=== PATIENT | male | born 1935 | race Two or more races ===

== ENCOUNTER 2018-01-10 14:35 | Outpatient (CLI) | payer MEDICARE | END 2018-01-10 23:59 | disposition home health service (06) | LOC: WOU 14:35 | PROVIDERS: ATTEND Surgery | DX: L89.154 Pressure ulcer of sacral region, stage 4 (principal); M24.50 Contracture, unspecified joint; E44.0 Moderate protein-calorie malnutrition; Z68.23 Body mass index [BMI] 23.0-23.9, adult; Z79.899 Other long term (current) drug therapy; L89.621 Pressure ulcer of left heel, stage 1; L89.611 Pressure ulcer of right heel, stage 1; G30.9 Alzheimer's disease, unspecified; F02.80 Dementia in other diseases classified elsewhere, unspecified severity, without behavioral disturbance, psychotic disturbance, mood disturbance, and anxiety | CPT/HCPCS: 11043; A6402; Z7610 ==

== ENCOUNTER 2018-01-17 14:30 | Outpatient (CLI) | payer MEDICARE | END 2018-01-17 23:59 | disposition home health service (06) | LOC: WOU 14:30 | PROVIDERS: ATTEND Surgery | DX: L89.154 Pressure ulcer of sacral region, stage 4 (principal); G30.9 Alzheimer's disease, unspecified; F02.80 Dementia in other diseases classified elsewhere, unspecified severity, without behavioral disturbance, psychotic disturbance, mood disturbance, and anxiety; E44.0 Moderate protein-calorie malnutrition; Z68.23 Body mass index [BMI] 23.0-23.9, adult; M24.50 Contracture, unspecified joint; R53.1 Weakness; L89.621 Pressure ulcer of left heel, stage 1; L89.611 Pressure ulcer of right heel, stage 1 | CPT/HCPCS: 11043; A6402; Z7610 ==

== ENCOUNTER 2018-01-24 13:19 | Outpatient (CLI) | payer MEDICARE | END 2018-01-24 23:59 | disposition home health service (06) | LOC: WOU 13:19 | PROVIDERS: ATTEND Surgery | DX: L89.154 Pressure ulcer of sacral region, stage 4 (principal); M24.50 Contracture, unspecified joint; E44.0 Moderate protein-calorie malnutrition; Z68.23 Body mass index [BMI] 23.0-23.9, adult; G30.9 Alzheimer's disease, unspecified; F02.80 Dementia in other diseases classified elsewhere, unspecified severity, without behavioral disturbance, psychotic disturbance, mood disturbance, and anxiety; L89.621 Pressure ulcer of left heel, stage 1; L89.611 Pressure ulcer of right heel, stage 1 | CPT/HCPCS: 11042; A6402; Z7610 ==

== ENCOUNTER 2018-01-31 13:09 | Outpatient (CLI) | payer MEDICARE | END 2018-01-31 23:59 | disposition home health service (06) | LOC: WOU 13:09 | PROVIDERS: ATTEND Surgery | DX: L89.154 Pressure ulcer of sacral region, stage 4 (principal); G30.9 Alzheimer's disease, unspecified; F02.80 Dementia in other diseases classified elsewhere, unspecified severity, without behavioral disturbance, psychotic disturbance, mood disturbance, and anxiety; E44.0 Moderate protein-calorie malnutrition; Z68.23 Body mass index [BMI] 23.0-23.9, adult; M24.50 Contracture, unspecified joint; R53.1 Weakness; L89.621 Pressure ulcer of left heel, stage 1; L89.611 Pressure ulcer of right heel, stage 1 | CPT/HCPCS: 11043; A6402; Z7610 ==

== ENCOUNTER 2018-02-07 13:20 | Outpatient (CLI) | payer MEDICARE | END 2018-02-07 23:59 | disposition home health service (06) | LOC: WOU 13:20 | PROVIDERS: ATTEND Surgery | DX: L89.154 Pressure ulcer of sacral region, stage 4 (principal); G30.9 Alzheimer's disease, unspecified; F02.80 Dementia in other diseases classified elsewhere, unspecified severity, without behavioral disturbance, psychotic disturbance, mood disturbance, and anxiety; E44.0 Moderate protein-calorie malnutrition; Z68.23 Body mass index [BMI] 23.0-23.9, adult; M24.50 Contracture, unspecified joint; R35.1 Nocturia; L89.621 Pressure ulcer of left heel, stage 1; L89.611 Pressure ulcer of right heel, stage 1 | CPT/HCPCS: 11042; A6402; Z7610 ==

== ENCOUNTER 2018-04-11 13:00 | Outpatient (CLI) | payer MEDICARE, MEDICAID | END 2018-04-11 23:59 | disposition home health service (06) | LOC: WOU 13:00 | PROVIDERS: ATTEND Surgery | DX: Z09 Encounter for follow-up examination after completed treatment for conditions other than malignant neoplasm (principal); M24.50 Contracture, unspecified joint; R53.1 Weakness; G30.9 Alzheimer's disease, unspecified; F02.80 Dementia in other diseases classified elsewhere, unspecified severity, without behavioral disturbance, psychotic disturbance, mood disturbance, and anxiety; E44.0 Moderate protein-calorie malnutrition; Z68.23 Body mass index [BMI] 23.0-23.9, adult; L89.621 Pressure ulcer of left heel, stage 1; L89.611 Pressure ulcer of right heel, stage 1 | CPT/HCPCS: G0463; Z7610 ==

== ENCOUNTER 2018-05-09 13:15 | Outpatient (CLI) | payer MEDICARE, MEDICAID | END 2018-05-09 23:59 | disposition home or self-care (01) | LOC: WOU 13:15 | PROVIDERS: ATTEND Surgery | DX: L89.621 Pressure ulcer of left heel, stage 1 (principal); L89.611 Pressure ulcer of right heel, stage 1; Z68.23 Body mass index [BMI] 23.0-23.9, adult; G30.9 Alzheimer's disease, unspecified; F02.80 Dementia in other diseases classified elsewhere, unspecified severity, without behavioral disturbance, psychotic disturbance, mood disturbance, and anxiety; N40.0 Benign prostatic hyperplasia without lower urinary tract symptoms; Z79.899 Other long term (current) drug therapy; E44.0 Moderate protein-calorie malnutrition; R53.1 Weakness; M24.50 Contracture, unspecified joint | CPT/HCPCS: G0463; Z7610 ==

== ENCOUNTER 2018-07-25 11:15 | Outpatient (CLI) | payer MEDICARE, MEDICAID | END 2018-07-25 23:59 | disposition home health service (06) | LOC: WOU 11:15 | PROVIDERS: ATTEND Surgery | DX: L89.323 Pressure ulcer of left buttock, stage 3 (principal); G30.9 Alzheimer's disease, unspecified; F02.80 Dementia in other diseases classified elsewhere, unspecified severity, without behavioral disturbance, psychotic disturbance, mood disturbance, and anxiety; M62.50 Muscle wasting and atrophy, not elsewhere classified, unspecified site; M62.40 Contracture of muscle, unspecified site; E46 Unspecified protein-calorie malnutrition; Z68.23 Body mass index [BMI] 23.0-23.9, adult; R47.01 Aphasia; B36.9 Superficial mycosis, unspecified | CPT/HCPCS: A6402; G0463 ==

== ENCOUNTER 2018-08-12 13:30 | Outpatient (CLI) | payer MEDICARE, MEDICAID | END 2018-08-12 23:59 | disposition home health service (06) | LOC: WOU 13:30 | PROVIDERS: ATTEND Podiatrist Foot & Ankle Surgery | DX: S91.311A Laceration without foreign body, right foot, initial encounter (principal); X58.XXXA Exposure to other specified factors, initial encounter; Y92.89 Other specified places as the place of occurrence of the external cause; R60.0 Localized edema; L85.3 Xerosis cutis; L89.323 Pressure ulcer of left buttock, stage 3 | CPT/HCPCS: A6402; G0463 ==

== ENCOUNTER 2019-01-16 11:30 | Outpatient (CLI) | payer MEDICARE, MEDICAID | END 2019-01-16 23:59 | disposition home health service (06) | LOC: WOU 11:30 | PROVIDERS: ATTEND Podiatrist Foot & Ankle Surgery | DX: L89.613 Pressure ulcer of right heel, stage 3 (principal); L03.115 Cellulitis of right lower limb; G30.9 Alzheimer's disease, unspecified; F02.80 Dementia in other diseases classified elsewhere, unspecified severity, without behavioral disturbance, psychotic disturbance, mood disturbance, and anxiety; M62.50 Muscle wasting and atrophy, not elsewhere classified, unspecified site | CPT/HCPCS: 11042; 11045 ==

== ENCOUNTER 2019-01-23 11:34 | Outpatient (CLI) | payer MEDICARE, MEDICAID ==
[2019-03-12] MEDS ORDERED: TAMS-12 PO (11:30)
[2019-03-12] MEDS ORDERED: BISA10SU11 RC (11:30)
== END 2019-01-23 23:59 | disposition home health service (06) ==
LOC: WOU 11:34
PROVIDERS: ATTEND Podiatrist Foot & Ankle Surgery
DX: L89.613 Pressure ulcer of right heel, stage 3 (principal); S81.811A Laceration without foreign body, right lower leg, initial encounter; W45.8XXA Other foreign body or object entering through skin, initial encounter; Y92.89 Other specified places as the place of occurrence of the external cause; G30.9 Alzheimer's disease, unspecified; F02.80 Dementia in other diseases classified elsewhere, unspecified severity, without behavioral disturbance, psychotic disturbance, mood disturbance, and anxiety
CPT/HCPCS: G0463

== ENCOUNTER 2019-02-03 11:30 | Outpatient (CLI) | payer MEDICARE, MEDICAID | END 2019-02-03 23:59 | disposition home or self-care (01) | LOC: WOU 11:30 | PROVIDERS: ATTEND Podiatrist Foot & Ankle Surgery | DX: S81.811D Laceration without foreign body, right lower leg, subsequent encounter (principal); X58.XXXD Exposure to other specified factors, subsequent encounter; Z74.09 Other reduced mobility; G30.8 Other Alzheimer's disease | CPT/HCPCS: G0463 ==

== ENCOUNTER 2019-02-20 11:10 | Outpatient (CLI) | payer MEDICARE, MEDICAID ==
[2019-03-12] MEDS ORDERED: TAMS-12 PO (11:30)
[2019-03-12] MEDS ORDERED: BISA10SU11 RC (11:30)
== END 2019-02-20 23:59 | disposition home health service (06) ==
LOC: WOU 11:10
PROVIDERS: ATTEND Surgery
DX: S40.212A Abrasion of left shoulder, initial encounter (principal); X58.XXXA Exposure to other specified factors, initial encounter; Y92.013 Bedroom of single-family (private) house as the place of occurrence of the external cause; L89.210 Pressure ulcer of right hip, unstageable; G30.9 Alzheimer's disease, unspecified; F02.80 Dementia in other diseases classified elsewhere, unspecified severity, without behavioral disturbance, psychotic disturbance, mood disturbance, and anxiety; Z74.09 Other reduced mobility
CPT/HCPCS: G0463

== ENCOUNTER 2019-03-05 10:48 | Inpatient (IN) | payer MEDICARE, MEDICAID ==
[~2019-03-05] VITALS: Ht 182.9 cm; Wt 71.7 kg
[2019-03-05] MEDS ORDERED: IV NS 0.9% 1,000 ML BAG IV ONE (11:00)
--- NOTE | 2019-03-05 11:00 | NUR ---
PT BIBRA FROM HOME C/O FEVER/ GEN WEAKNESS FOR 2 DAYS. FINISHED ANTIBIOTIC TREATMENT FOR UTI YESTERDAY. PT IS ALERT YET NON VERBAL, VSS, BREATHING EVEN AND UNLABORED IN ROOM AIR. IV LINE ESTABLISHED 20G. R HEEL PRESSURE SORE NOTED.
[2019-03-05 11:20] LABS: BASOPHILS % (AUTO) 0.3 % (0.0-2.0); EOSINOPHILS % (AUTO) 0.6 % (0.0-6.0); HEMATOCRIT 49 % (39-51); HEMOGLOBIN 15.4 g/dL (13.5-17.5); LYMPHOCYTES # (AUTO) 1.4 /CMM (0.8-4.8); LYMPHOCYTES % (AUTO) 16.9 % (20.0-44.0); MEAN CORPUSCULAR HGB CONC 32 g/dl (31.0-36.0); MEAN CORPUSCULAR VOLUME 91 fL (80-96); MONOCYTES # (AUTO) 0.5 /CMM (0.1-1.30); MONOCYTES % (AUTO) 6.5 % (2.0-12.0); NEUTROPHILS # (AUTO) 6.3 /CMM (1.8-8.9); NEUTROPHILS % (AUTO) 75.7 % (43.0-81.0); PLATELET COUNT (AUTO) 89 /CMM (150-450); RED BLOOD CELL COUNT(AUTO) 5.41 MIL/uL (4.5-6.0); WHITE BLOOD COUNT (AUTO) 8.3 K/uL (4.3-11.0)
[2019-03-05] MEDS ORDERED: ACETAMINOPHEN 650 MG/SUPP.RECT RC ONE (11:30)
[2019-03-05] MEDS ORDERED: ACETAMINOPHEN ES 500 MG TABLET PO ONE (11:30)
[2019-03-05 11:36] LABS: APPEARANCE,URINE Cloudy (CLEAR); BILIRUBIN,URINE Negative (NEGATIVE); BLOOD, URINE Large Ery/uL (NEGATIVE); KETONES,URINE Negative (NEGATIVE); LEUKOCYTE ESTERASE ,URINE Moderate (NEGATIVE); NITRITE, URINE Negative (NEGATIVE); PH,URINE 5.5 (5.0-8.0); PROTEIN,URINE 100 mg/dl (NEGATIVE); UGLUCOSE Negative (NEGATIVE); UROBILINOGEN,URINE 0.2 EU/dL (0.2)
[2019-03-05 11:37] LABS: COLOR,URINE Dark Yellow (YELLOW)
[2019-03-05 11:41] LABS: CALCIUM, SERUM 9.4 mg/dL (8.5-10.1); CARBON DIOXIDE 26 mmol/L (21-32); CREATININE 1.5 mg/dL (0.6-1.3); GLUCOSE 108 mg/dL (74-106); UREA NITROGEN, BLOOD 31 mg/dL (7-18)
[2019-03-05 11:42] LABS: ALANINE AMINOTRANSFERASE 30 U/L (12-78); ALBUMIN 3.1 g/dL (3.4-5.0); ALKALINE PHOSPHATASE 72 U/L (46-116); ASPARTATE AMINOTRANSFERASE 20 U/L (15-37); BILIRUBIN,DIRECT 0.4 mg/dL (0.0-0.2); BILIRUBIN,TOTAL 1.6 mg/dL (0.2-1.0); TOTAL PROTEIN, SERUM 7.3 g/dL (6.4-8.2)
[2019-03-05 11:43] LABS: SODIUM SERUM 163 mmol/L (136-145)
[2019-03-05 11:44] LABS: CHLORIDE 127 mmol/L (98-107)
[2019-03-05 11:47] LABS: BACTERIA,URINE Few /HPF (None Seen); RBC,URINE 21-50 /HPF (0-2); SQUAMOUS EPITHELIAL CELL,UR Few /HPF (None Seen); WBC,URINE 81-100 /HPF (0-3)
[2019-03-05 11:48] LABS: MUCUS,URINE Few /LPF (None Seen)
--- NOTE | 2019-03-05 12:00 | NUR ---
PT BACK FROM CT
[2019-03-05 12:08] LABS: EOSINOPHILS % (MANUAL) 1 % (0-4); LYMPHOCYTES % (MANUAL) 17 % (16-48); MONOCYTES % (MANUAL) 4 % (0-11.0); NEUTROPHILS % (MANUAL) 78 (42-76)
--- NOTE | 2019-03-05 12:27 | NUR ---
CALLED NURSING SUP FOR TELE BED
[2019-03-05 13:05] LABS: SERUM AMMONIA < 10 umol/L (11-32)
[2019-03-05 13:11] LABS: THYROID STIMULATING HORMONE 1.754 uIU/mL (0.358-3.74)
--- NOTE | 2019-03-05 13:26 | NUR ---
[id number] TELE AMS, SEPSIS
--- NOTE | 2019-03-05 13:37 | NUR ---
REPORT GIVEN TO EDEL HANDLEY FOR ANUPAMA.
[2019-03-05] MEDS ORDERED: CHOL100044 PO (13:50)
[2019-03-05] MEDS ORDERED: CYAN-24 PO (13:50)
[2019-03-05] MEDS ORDERED: LEVO25TA9 PO (13:50)
[2019-03-05] MEDS ORDERED: NEUPRO TD (13:50)
[2019-03-05] MEDS ORDERED: TAMS-12 PO (13:50)
--- NOTE | 2019-03-05 14:27 | NUR ---
MS WHEEL ASSEMBLER NOTES Received Patient resting in bed. A/O x 1, non-verbal. Responsive to name and touch but eyes kept closed. VS stable with no acute distress. Breathing even and unlabored on room air with no respiratory distress. No signs and symptoms of pain. Assessed skin for wounds. Wound pictures taken and placed in chart. 20g PIV on RFA clean, intact, patent and flushing well with D5W running at 100ml/hr. Safety precautions in place. Bed locked and set to lowest position with side rails x 2 up. All needs rendered at this time. Call light within reach. Will continue to monitor. Addendum: 03/05/19 at 2 by EDEL HIGUERA RN EARTH MOVING MACHINE OPERATORWHEEL ASSEMBLER NOTES Telemonitor in place and patent reading SR with [id number].
[2019-03-05] MEDS ORDERED: ENOXAPARIN SODIUM 40 MG/0.4 ML DISP.SYRIN SQ SCH (15:00)
[2019-03-05] MEDS ORDERED: Z GUARD REMEDY 2 OZ OINT TP PRN (15:00)
[2019-03-05] MEDS ORDERED: ONDANSETRON HCL/PF 4 MG/2 ML VIAL IVP PRN (15:00)
[2019-03-05] MEDS ORDERED: ACETAMINOPHEN 325 MG TABLET PO PRN (15:00)
[2019-03-05 16:00] VITALS: BP 99/63
[2019-03-05] MEDS: IV D5W 1,000 ML IV PRN (16:06)
--- NOTE | 2019-03-05 18:30 | NUR ---
QUALITY CONTROL AUDITOR NOTES Patient seen by Jagdeep Smart DNP. Per DNP, NPO due to Patients decreased gag reflex. Order noted and carried out. DNP provided wound care on LEFT HEEL. Removed excess skin to reveal open wound. Wound consult ordered. Applied Xeroform and applied Mepilex and wrapped with Kerlix. Will continue to monitor.
[2019-03-05] MEDS: CEFTRIAXONE 1 G in IV D5W 50 ML IV SCH (18:35)
--- NOTE | 2019-03-05 19:10 | NUR ---
CHANGED OF SHIFT REPORT Patient in bed, non verbal, eyes open. Sinus johan in the Tele monitor, tolerating RA. IVF infusing. Appears comfortable in bed, reposition scheduled as followed. Maintained safety.
--- NOTE | 2019-03-05 19:49 | NUR ---
MS RN CLOSING NOTES Patient resting in bed. A/O x 1, non-verbal. Responsive to name and touch but eyes kept closed. VS stable with no acute distress. Breathing even and unlabored on room air with no respiratory distress. No signs and symptoms of pain. Wound dressings clean, dry, and intact. Elevated bilateral legs with two pillows. 20g PIV on RFA clean, intact, patent and flushing well with D5W running at 100ml/hr. Safety precautions in place. Bed locked and set to lowest position with side rails x 2 up. All needs rendered at this time. Call light within reach. Will endorse plan of care to oncoming shift. Addendum: 03/05/19 at 1953 by EDEL HIGUERA RN THEATRICAL DRESSER CLOSING NOTES Telemonitor in place and patent reading SR with HR-[id number].
[2019-03-05 20:00] VITALS: BP 85/61
[2019-03-05 20:45] VITALS: BP 85/61
[2019-03-05] MEDS: TAMSULOSIN 0.4 MG CAP.SR.24H PO SCH (21:02)
[2019-03-06] VITALS (7 sets, daily range): BP systolic 82–131; BP diastolic 56–74
[2019-03-06] MEDS: IV D5W 1,000 ML IV PRN ×2 (02:18→20:55)
--- NOTE | 2019-03-06 06:20 | NUR ---
END OF SHIFT REPORT Patient in bed, non verbal, opens eye. Stable oxygen saturation on RA, Sinus Rhythm [id number] in the Tele monitor. NPO IVF infusing, IV antibiotic as scheduled, Afebrile overnight. Reposition every 2 hours, offload heels at all times. Wound consult/ PT to follow.
[2019-03-06 06:50] LABS: BASOPHILS % (AUTO) 0.1 % (0.0-2.0); EOSINOPHILS % (AUTO) 1.3 % (0.0-6.0); HEMATOCRIT 42 % (39-51); HEMOGLOBIN 13.7 g/dL (13.5-17.5); LYMPHOCYTES # (AUTO) 0.8 /CMM (0.8-4.8); LYMPHOCYTES % (AUTO) 12.2 % (20.0-44.0); MEAN CORPUSCULAR HGB CONC 33 g/dl (31.0-36.0); MEAN CORPUSCULAR VOLUME 89 fL (80-96); MONOCYTES # (AUTO) 0.3 /CMM (0.1-1.30); MONOCYTES % (AUTO) 5.4 % (2.0-12.0); PLATELET COUNT (AUTO) 75 /CMM (150-450); RED BLOOD CELL COUNT(AUTO) 4.74 MIL/uL (4.5-6.0); WHITE BLOOD COUNT (AUTO) 6.1 K/uL (4.3-11.0)
[2019-03-06 06:57] LABS: ALBUMIN 2.7 g/dL (3.4-5.0); BILIRUBIN,TOTAL 1.7 mg/dL (0.2-1.0); CALCIUM, SERUM 8.5 mg/dL (8.5-10.1); CREATININE 1.1 mg/dL (0.6-1.3); MAGNESIUM 2.4 mg/dL (1.8-2.4); PHOSPHORUS 2.1 mg/dL (2.5-4.9); POTASSIUM 3.5 mmol/L (3.5-5.1); TOTAL PROTEIN, SERUM 6.5 g/dL (6.4-8.2)
[2019-03-06 07:04] LABS: THYROID STIMULATING HORMONE 2.065 uIU/mL (0.358-3.74)
[2019-03-06] MEDS: LEVOTHYROXINE SODIUM 25 MCG TABLET PO SCH (07:30)
--- NOTE | 2019-03-06 07:30 | NUR ---
INSULATION BOARD COATER OPERATOR OPENING NOTES: RECEIVED PATIENT RESTING IN BED, STABLE AND NO PRESENT S/S OF SOB OR DISTRESS. BREATHING EVEN AND UNLABORED ON ROOM AIR. A/O x 1,NON-VERBAL. NO S/S OF PAIN AND DISCOMFORT. IV ACCESS ON RIGHT FA #20G IS CLEAN, INTACT AND PATENT. NO S/S OF INFILTRATION. ON TELE MONITORING WITH READING OF SR WITH HR ON THE 60'S. SAFETY MEASURES ARE IN PLACE. BED IS IN LOW, LOCKED POSITION WITH THE SIDE RAILS X2 UP. CALL LIGHT IS WITHIN REACH. WILL CONTINUE TO MONITOR ACCORDINGLY.
[2019-03-06 08:07] LABS: BAND % (MANUAL) 1 % (0.0-5.0); LYMPHOCYTES % (MANUAL) 12 % (16-48); MONOCYTES % (MANUAL) 2 % (0-11.0); NEUTROPHILS % (MANUAL) 85 (42-76)
[2019-03-06] MEDS: CHOLECALCIFEROL 1,000 UNIT TABLET (VIT D3) PO SCH (09:00)
[2019-03-06] MEDS: CYANOCOBALAMIN 500 MCG TABLET PO SCH (09:00)
[2019-03-06] MEDS: HYDROGEL DRESSING 90 GM TUBE TP SCH (15:09)
[2019-03-06] MEDS: CEFTRIAXONE 1 G in IV D5W 50 ML IV SCH (15:10)
[2019-03-06] MEDS: POTASSIUM PHOSPHATE MM 7.5 MMOL in IV D5W 100 ML IV SCH ×2 (15:43→18:07)
[2019-03-06] MEDS ORDERED: IV D5W 1,000 ML IV PRN (17:00)
[2019-03-06] MEDS ORDERED: ACETAMINOPHEN 650 MG/SUPP.RECT RC PRN (17:00)
--- NOTE | 2019-03-06 18:48 | NUR ---
MS RN CLOSING NOTES: PATIENT IS IN BED SLEEPING. NON VERBAL. OPENS EYE WITH VERBAL STIMULI. NO S/S OF SOB OR DISTRESS. BREATHING IS EVEN AND UNLABORED. ON ROOM AIR. NO S/S OF PAIN OR DISCOMFORT AT THIS TIME. ON NPO STATUS. ALL DUE MEDICATIONS GIVEN ORDERED, TOLERATED WELL. IV ACCESS IN RIGHT FA #20G INTACT, AND PATENT. PATIENT NOTED WITH MILD FEVER TEMP OF 101.4 AND GIVEN TYLENOL SUPPOSITORY. RECHECKED, AND TEMP IS 98.6. REPOSITIONED EVERY 2 HOURS. WOUND CARE PERFORMED ORDERED. KEPT PATIENT CLEAN AND DRY AT ALL TIME. ALL NURSING NEEDS MET AND PROVIDED. SAFETY MEASURES KEPT IN PLACE. BED IS IN LOW, LOCKED POSITION WITH SIDE RAILS X2 UP. CALL LIGHT WITHIN REACH. WILL ENDORSE TO SILK SCREEN PRINTER HELPER FOR ANUPAMA.
--- NOTE | 2019-03-06 19:35 | NUR ---
CHANGED OF SHIFT REPORT Patient in bed, non verbal, eyes open. IVF infusing, appears comfortable in bed. Spiked temp today per report, will monitor. Fall precaution maintained.
--- NOTE | 2019-03-06 20:16 | NUR ---
BP IN LOW 80's Low BP 82/56 Pulse 65. Patient is non verbal, unable to verbalized/state needs. Tolerating RA, oxygen sat. 96%. Notified RADHA Mckeon. Increased rate D5W to 125cc/hr, will cont to monitor patient closely. Maintained safety.
[2019-03-06] MEDS: TAMSULOSIN 0.4 MG CAP.SR.24H PO SCH (21:15)
--- NOTE | 2019-03-06 22:22 | NUR ---
BP MONITORED BP improved, now 117/74 Pulse 73
[2019-03-07] VITALS: BP 111/74
[2019-03-07] MEDS: IV D5W 1,000 ML IV PRN ×2 (04:18→23:41)
--- NOTE | 2019-03-07 06:28 | NUR ---
END OF SHIFT REPORT Patient in bed, non verbal, opens eye. Stable oxygen saturation on RA. Remains NPO. IVF infusing, maintained at 125ml/hr, BP improved. IV antibiotic as scheduled, Afebrile overnight. Reposition every 2 hours, offload heels at all times. Fall precaution maintained.
[2019-03-07 06:51] LABS: CALCIUM, SERUM 8.7 mg/dL (8.5-10.1); CREATININE 0.9 mg/dL (0.6-1.3); POTASSIUM 3.5 mmol/L (3.5-5.1)
--- NOTE | 2019-03-07 07:20 | NUR ---
M/S RN NOTES PATIENT RESTING, LYING IN BED. PATIENT NON VERBAL, OPENS EYES. PATIENT IN NO RESPIRATORY DISTRESS. NO S/S OF PAIN AT THIS TIME. SKIN WARM TO TOUCH. IV OF D5W INFUSING AT 125ML/HR ON THE RFA #20G, INTACT AND PATENT. PATIENT'S NEEDS ATTENDED. BED ON LOWEST LOCKED POSITION, CALL LIGHT WITHIN REACH. WILL CONTINUE TO MONITOR.
[2019-03-07] MEDS: LEVOTHYROXINE SODIUM 25 MCG TABLET PO SCH (07:30)
[2019-03-07 08:00] VITALS: BP 90/48
[2019-03-07] MEDS: CYANOCOBALAMIN 500 MCG TABLET PO SCH (09:00)
[2019-03-07] MEDS: CHOLECALCIFEROL 1,000 UNIT TABLET (VIT D3) PO SCH (09:00)
[2019-03-07] MEDS: HYDROGEL DRESSING 90 GM TUBE TP SCH (09:01)
--- NOTE | 2019-03-07 09:48 | NUR ---
WOUND CARE CONSULT WOUND CARE RECEIVED CONSULT FOR LEFT HEEL WOUND AND SACRAL WOUND. WOUND CARE WILL DEFER CONSULT AND TREATMENT PLANS TO PLASTIC SURGICAL TEAM INCLUDING DPM WHO ARE ALL FOLLOWING THIS PATIENT. PATIENT WITH SAIRA AT 9, ALL PRESSURE ULCER PREVENTION MEASURES ARE NOTED TO BE IN PLACE THIS TIME. WILL SEE PRN.
[2019-03-07] MEDS: FLUCONAZOLE IN NS 100 MG in PREMIX 1 EA IV SCH ×2 (13:59)
[2019-03-07] MEDS: CEFTRIAXONE 1 G in IV D5W 50 ML IV SCH (15:00)
[2019-03-07 16:31] VITALS: BP 90/54
[2019-03-07] MEDS: JEVITY 1.2 CAL 1,000 ML BOTTLE GT PRN (17:21)
--- NOTE | 2019-03-07 17:57 | NUR ---
M/S RN NOTES INSERTED NG TUBE 18FR, TOLERATED WELL. CHECKED FOR PATENCY AND RESIDUAL.
--- NOTE | 2019-03-07 18:45 | NUR ---
M/S RN NOTES PATIENT RESTING IN BED, NO RESPIRATORY DISTRESS, NO S/S OF PAIN. PATIENT'S NG TUBE PLACED WAITING FOR CXR RESULTS. PATIENT'S NEEDS ATTENDED. BED ON LOWEST LOCKED POSITION, CALL LIGHT WITHIN REACH. WILL ENDORSE TO ONCOMING NURSE.
--- NOTE | 2019-03-07 19:05 | NUR ---
MS RN NOTES RECEIVED PT IN BED RESTING. RESPIRATIONS EVEN AND UNLABORED WITH NO S/S OF ACUTE DISTRESS OR SOB NOTED. NO S/S OF PAIN AT THIS TIME. PT NOTED WITH RFA #20G PATENT AND INTACT INFUSING D5 @125ML/HR. SAFETY MEASURES IN PLACE WITH BED IN LOWEST LOCKED POSITION WITH SIDE RAILS UP X2. CALL LIGHT WITHIN REACH. WILL CONTINUE TO MONITOR.
--- NOTE | 2019-03-07 19:30 | NUR ---
MS RN NOTES CALLED [facility] [phone] FOR CONFIRMATION OF NG TUBE PLACEMENT. AWAITING FOR RESPONSE BACK.
[2019-03-07 20:00] VITALS: BP 90/57
--- NOTE | 2019-03-07 21:04 | NUR ---
MS RN NOTES RECONTACTED [facility], STILL AWAITING RESULTS FOR NG TUBE PLACEMENT. WILL CONTINUE TO MONITOR.
--- NOTE | 2019-03-07 21:30 | NUR ---
MS RN NOTES NG TUBE PLACEMENT CONFIRMED.
[2019-03-07] MEDS: TAMSULOSIN 0.4 MG CAP.SR.24H PO SCH (22:30)
[2019-03-08 07:08] LABS: BASOPHILS % (AUTO) 0.2 % (0.0-2.0); EOSINOPHILS % (AUTO) 2.7 % (0.0-6.0); HEMATOCRIT 41 % (39-51); HEMOGLOBIN 13.5 g/dL (13.5-17.5); LYMPHOCYTES % (AUTO) 18.2 % (20.0-44.0); MEAN CORPUSCULAR HGB CONC 33 g/dl (31.0-36.0); MEAN CORPUSCULAR VOLUME 86 fL (80-96); MONOCYTES # (AUTO) 0.4 /CMM (0.1-1.30); MONOCYTES % (AUTO) 6.9 % (2.0-12.0); NEUTROPHILS # (AUTO) 3.8 /CMM (1.8-8.9); PLATELET COUNT (AUTO) 72 /CMM (150-450); RED BLOOD CELL COUNT(AUTO) 4.73 MIL/uL (4.5-6.0); WHITE BLOOD COUNT (AUTO) 5.3 K/uL (4.3-11.0)
[2019-03-08 07:16] LABS: CALCIUM, SERUM 8.3 mg/dL (8.5-10.1); CREATININE 0.8 mg/dL (0.6-1.3); MAGNESIUM 2.3 mg/dL (1.8-2.4); PHOSPHORUS 2.3 mg/dL (2.5-4.9); POTASSIUM 3.6 mmol/L (3.5-5.1)
--- NOTE | 2019-03-08 07:31 | NUR ---
MS RN NOTES PT IN BED RESTING. RESPIRATIONS EVEN AND UNLABORED WITH NO S/S OF ACUTE DISTRESS OR SOB NOTED THROUGHOUT SHIFT. NO S/S OF PAIN AT THIS TIME. PT KEPT CLEAN, DRY, AND COMFORTABLE. TURNED PT Q2 HOURS THROUGHOUT SHIFT. PT NOTED WITH RFA #20G PATENT AND INTACT INFUSING D5 @125ML/HR. PT WITH NG TUBE INFUSING JEVITY 1.2 @40CC/HR. SAFETY MEASURES IN PLACE WITH BED IN LOWEST LOCKED POSITION WITH SIDE RAILS UP X2. CALL LIGHT WITHIN REACH. WILL ENDORSE TO ONCOMING NURSE FOR ANUPAMA.
--- NOTE | 2019-03-08 07:36 | NUR ---
MS RN OPENING NOTES Received Patient resting in bed. Patient non-verbal, responsive to touch. VS stable with no acute distress. Breathing even and unlabored on room air with no respiratory distress. Noted 20g PIV on RFA leaking, IVF infusion stopped. Will reassess PIV. NGT in place and patent with Jevity 1.2 infusing at 40ml/hr. Patient tolerating well. Wound dressings clean and intact. Repositioned Patient q2h. Safety precautions in place. Bed locked and set to lowest position with side rails x 2 up. All needs rendered at this time. Call light within reach. Will continue to monitor.
[2019-03-08 08:00] VITALS: BP 91/55
[2019-03-08] MEDS: CHOLECALCIFEROL 1,000 UNIT TABLET (VIT D3) PO SCH (08:33)
[2019-03-08] MEDS: LEVOTHYROXINE SODIUM 25 MCG TABLET PO SCH (08:33)
[2019-03-08] MEDS: HYDROGEL DRESSING 90 GM TUBE TP SCH (08:33)
[2019-03-08] MEDS: CYANOCOBALAMIN 500 MCG TABLET PO SCH (08:33)
[2019-03-08 09:46] LABS: EOSINOPHILS % (MANUAL) 1 % (0-4); LYMPHOCYTES % (MANUAL) 20 % (16-48); MONOCYTES % (MANUAL) 11 % (0-11.0); NEUTROPHILS % (MANUAL) 68 (42-76)
[2019-03-08] MEDS ORDERED: POTASSIUM PHOSPHATE MM 7.5 MMOL in IV D5W 100 ML IV SCH (11:30)
--- NOTE | 2019-03-08 12:00 | NUR ---
MS RN NOTES Removed intact 20g PIV on RFA and inserted 22g PIV on RFA clean, intact, patent, and flushing well with IV ABX infusing. Patient tolerated well. Will continue to monitor.
[2019-03-08] MEDS: FLUCONAZOLE IN NS 100 MG in PREMIX 1 EA IV SCH ×2 (12:12)
[2019-03-08] MEDS ORDERED: TAMSULOSIN 0.4 MG CAP.SR.24H PO SCH (13:00)
[2019-03-08] MEDS: TAMSULOSIN 0.4 MG CAP.SR.24H PO SCH (13:16)
--- NOTE | 2019-03-08 13:33 | NUR ---
MS RN NOTES Received Neupro Transdermal Patch from Daughter. Brought medication to pharmacy. Will continue to monitor.
[2019-03-08] MEDS: CEFTRIAXONE 1 G in IV D5W 50 ML IV SCH (15:19)
[2019-03-08] MEDS: NEUPRO 6 MG TP SCH (15:19)
[2019-03-08 16:00] VITALS: BP 90/55
--- NOTE | 2019-03-08 18:48 | NUR ---
MS RN NOTES Removed intact 22g PIV on RFA. Noted redness and edema on RFA. Elevated extremity. Will continue to monitor. Inserted 20g PIV x 1 attempt on ISIDRO clean, intact and patent with D5W running at 125ml/hr. Patient tolerated well. Will continue to monitor.
--- NOTE | 2019-03-08 18:51 | NUR ---
MS RN CLOSING NOTES Patient resting in bed. Patient non-verbal, responsive to touch. VS stable with no acute distress. Breathing even and unlabored on room air with no respiratory distress. 20g PIV on ISIDRO clean, intact and patent with D5W running at 125ml/hr. NGT in place and patent with Jevity 1.2 infusing at 50ml/hr. Patient tolerating well. Wound dressings clean and intact. Repositioned Patient q2h throughout shift. Safety precautions in place. Bed locked and set to lowest position with side rails x 2 up. All needs rendered at this time. Call light within reach. Will endorse plan of care to oncoming shift.
--- NOTE | 2019-03-08 19:05 | NUR ---
MS RN NOTES RECEIVED PT IN BED RESTING. PT NON-VERBAL, RESPONSIVE TO VERBAL OR TOUCH. RESPIRATIONS EVEN AND UNLABORED WITH NO S/S OF ACUTE DISTRESS OR SOB NOTED. PT WITH ISIDRO #20G PATENT AND INTACT INFUSING D5W. NGT IN PLACE AND PATENT INFUSING JEVITY 1.2 @50CC/HR. PT TOLERATING WELL. SAFETY MEASURES IN PLACE WITH BED IN LOWEST LOCKED POSITION WITH SIDE RAILS UP X2. CALL LIGHT WITHIN REACH. WILL CONTINUE TO MONITOR.
[2019-03-08 20:32] VITALS: BP_SYST 127; BP_SYST 92; BP_DIAS 51; BP_DIAS 52
[2019-03-08] MEDS: JEVITY 1.2 CAL 1,000 ML BOTTLE GT PRN (23:41)
[2019-03-09] MEDS: IV D5W 1,000 ML IV PRN (00:21)
[2019-03-09 06:59] LABS: BASOPHILS % (AUTO) 0.2 % (0.0-2.0); EOSINOPHILS % (AUTO) 1.2 % (0.0-6.0); HEMATOCRIT 40 % (39-51); HEMOGLOBIN 13.5 g/dL (13.5-17.5); LYMPHOCYTES # (AUTO) 0.7 /CMM (0.8-4.8); LYMPHOCYTES % (AUTO) 13.5 % (20.0-44.0); MEAN CORPUSCULAR HGB CONC 34 g/dl (31.0-36.0); MEAN CORPUSCULAR VOLUME 85 fL (80-96); MONOCYTES # (AUTO) 0.4 /CMM (0.1-1.30); MONOCYTES % (AUTO) 6.8 % (2.0-12.0); NEUTROPHILS # (AUTO) 4.4 /CMM (1.8-8.9); NEUTROPHILS % (AUTO) 78.3 % (43.0-81.0); PLATELET COUNT (AUTO) 89 /CMM (150-450); RED BLOOD CELL COUNT(AUTO) 4.67 MIL/uL (4.5-6.0); WHITE BLOOD COUNT (AUTO) 5.6 K/uL (4.3-11.0)
[2019-03-09 07:06] LABS: MAGNESIUM 2.3 mg/dL (1.8-2.4)
--- NOTE | 2019-03-09 07:42 | NUR ---
MS RN NOTES PT IN BED RESTING. PT NON-VERBAL, RESPONSIVE TO VERBAL OR TOUCH. RESPIRATIONS EVEN AND UNLABORED WITH NO S/S OF ACUTE DISTRESS OR SOB NOTED THROUGHOUT SHIFT. PT WITH ISIDRO #20G PATENT AND INTACT INFUSING D5W. NGT IN PLACE AND PATENT INFUSING JEVITY 1.2 @50CC/HR. PT TOLERATING WELL. PT KEPT CLEAN, DRY, AND COMFORTABLE. PT TURNED Q2 HOURS THROUGHOUT SHIFT. SAFETY MEASURES IN PLACE WITH BED IN LOWEST LOCKED POSITION WITH SIDE RAILS UP X2. CALL LIGHT WITHIN REACH. WILL ENDORSE TO ONCOMING NURSE FOR ANUPAMA.
[2019-03-09 08:00] VITALS: BP 98/63
--- NOTE | 2019-03-09 08:00 | NUR ---
MS RN OPENING NOTES Received Patient resting in bed. Patient non-verbal, responsive to touch. VS stable with no acute distress. Breathing even and unlabored on room air with no respiratory distress. 20g PIV on ISIDRO clean, intact and patent with D5W running at 125ml/hr. NGT in place and patent with Jevity 1.2 infusing at 60ml/hr. Patient tolerating well. Wound dressings clean and intact. Noted redness and swelling on right upper extremity. Elevated and placed ice pack on right upper extremity. Will continue to monitor. Repositioned Patient q2h. Safety precautions in place. Bed locked and set to lowest position with side rails x 2 up. All needs rendered at this time. Call light within reach. Will continue to monitor.
[2019-03-09] MEDS: LEVOTHYROXINE SODIUM 25 MCG TABLET PO SCH (08:42)
[2019-03-09] MEDS: CHOLECALCIFEROL 1,000 UNIT TABLET (VIT D3) PO SCH (08:43)
[2019-03-09] MEDS: CYANOCOBALAMIN 500 MCG TABLET PO SCH (08:43)
[2019-03-09] MEDS: NEUPRO 6 MG TP SCH (08:43)
[2019-03-09] MEDS: HYDROGEL DRESSING 90 GM TUBE TP SCH (08:44)
[2019-03-09 09:27] LABS: EOSINOPHILS % (MANUAL) 2 % (0-4); LYMPHOCYTES % (MANUAL) 17 % (16-48); MONOCYTES % (MANUAL) 3 % (0-11.0); NEUTROPHILS % (MANUAL) 78 (42-76)
[2019-03-09] MEDS: TAMSULOSIN 0.4 MG CAP.SR.24H PO SCH (13:43)
[2019-03-09] MEDS: MICAFUNGIN SODIUM 100 MG in IV NS 0.9% 100 ML IV SCH (13:43)
[2019-03-09] MEDS: CEFTRIAXONE 1 G in IV D5W 50 ML IV SCH (15:34)
[2019-03-09 16:00] VITALS: BP 120/54
--- NOTE | 2019-03-09 16:11 | NUR ---
MS RN NOTES Per Jagdeep Smart DNP, discontinue IVF D5W at 125ml/hr. Order noted and carried out. Patient in stable condition. Will continue to monitor.
--- NOTE | 2019-03-09 18:59 | NUR ---
MS RN CLOSING NOTES Patient resting in bed. Patient non-verbal, responsive to touch. VS stable with no acute distress. Breathing even and unlabored on room air with no respiratory distress. 20g PIV on ISIDRO clean, intact, patent and flushing well. NGT in place and patent with Jevity 1.2 infusing at 75ml/hr. Patient tolerating well. Wound dressings clean and intact. Noted redness and swelling on right upper extremity. Elevated and placed ice pack on right upper extremity. Will endorse to oncoming shift. Repositioned Patient q2h throughout shift. Safety precautions in place. Bed locked and set to lowest position with side rails x 2 up. All needs rendered at this time. Call light within reach. Will endorse plan of care to oncoming shift.
--- NOTE | 2019-03-09 19:10 | NUR ---
MS RN NOTES PT IN BED RESTING. PT NON-VERBAL, RESPONSIVE TO VERBAL OR TOUCH. RESPIRATIONS EVEN AND UNLABORED WITH NO S/S OF ACUTE DISTRESS OR SOB NOTED THROUGHOUT SHIFT. PT WITH ISIDRO #20G PATENT AND INTACT. NGT IN PLACE AND PATENT INFUSING JEVITY 1.2 @75CC/HR AND PT TOLERATING WELL. SAFETY MEASURES IN PLACE WITH BED IN LOWEST LOCKED POSITION WITH SIDE RAILS UP X2. CALL LIGHT WITHIN REACH. WILL CONTINUE TO MONITOR.
[2019-03-09 20:00] VITALS: BP 100/56
[2019-03-10 07:16] LABS: BASOPHILS % (AUTO) 0.1 % (0.0-2.0); EOSINOPHILS % (AUTO) 2.1 % (0.0-6.0); HEMATOCRIT 41 % (39-51); HEMOGLOBIN 13.7 g/dL (13.5-17.5); LYMPHOCYTES # (AUTO) 0.8 /CMM (0.8-4.8); LYMPHOCYTES % (AUTO) 11.9 % (20.0-44.0); MEAN CORPUSCULAR HGB CONC 33 g/dl (31.0-36.0); MEAN CORPUSCULAR VOLUME 86 fL (80-96); MONOCYTES # (AUTO) 0.5 /CMM (0.1-1.30); MONOCYTES % (AUTO) 7.2 % (2.0-12.0); NEUTROPHILS # (AUTO) 5.3 /CMM (1.8-8.9); NEUTROPHILS % (AUTO) 78.7 % (43.0-81.0); PLATELET COUNT (AUTO) 96 /CMM (150-450); WHITE BLOOD COUNT (AUTO) 6.7 K/uL (4.3-11.0)
--- NOTE | 2019-03-10 07:42 | NUR ---
MS RN OPENING NOTES RECEIVED PATIENT IN BED ASLEEP, AROUSABLE TO VERBAL AND TACTILE STIMULI. NON-VERBAL. HOB ELEVATED. NO SOB. ASPIRATION PRECAUTIONS OBSERVED AT ALL TIMES. NO EVIDENCE OF PAIN NOR DISCOMFORT AT THIS TIME. NGT INTACT AND PATENT RAMILA JEVITY 1.2 @ 75 ML/HR WELL ORDERED. ISIDRO # 20 SL INTACT AND PATENT. BED IN LOWEST POSITION, LOCKED. BED SIDERAILS UP X2. CALL LIGHT WITHIN REACH. FREQUENT VISUAL CHECK DONE.
[2019-03-10 07:44] LABS: CALCIUM, SERUM 8.2 mg/dL (8.5-10.1); CREATININE 0.7 mg/dL (0.6-1.3); MAGNESIUM 2.3 mg/dL (1.8-2.4); POTASSIUM 4.1 mmol/L (3.5-5.1)
[2019-03-10 08:00] VITALS: BP 105/60
--- NOTE | 2019-03-10 08:04 | NUR ---
MS RN NOTES PT IN BED RESTING. PT NON-VERBAL, RESPONSIVE TO VERBAL OR TOUCH. RESPIRATIONS EVEN AND UNLABORED WITH NO S/S OF ACUTE DISTRESS OR SOB NOTED THROUGHOUT SHIFT. PT WITH ISIDRO #20G PATENT AND INTACT. NGT IN PLACE AND PATENT INFUSING JEVITY 1.2 @75CC/HR. PT TOLERATING WELL. PT KEPT CLEAN, DRY, AND COMFORTABLE. PT TURNED Q2 HOURS THROUGHOUT SHIFT. SAFETY MEASURES IN PLACE WITH BED IN LOWEST LOCKED POSITION WITH SIDE RAILS UP X2. CALL LIGHT WITHIN REACH. WILL ENDORSE TO ONCOMING NURSE FOR ANUPAMA.
[2019-03-10] MEDS: LEVOTHYROXINE SODIUM 25 MCG TABLET PO SCH (08:23)
[2019-03-10] MEDS: CHOLECALCIFEROL 1,000 UNIT TABLET (VIT D3) PO SCH (08:40)
[2019-03-10] MEDS: CYANOCOBALAMIN 500 MCG TABLET PO SCH (08:41)
[2019-03-10] MEDS: HYDROGEL DRESSING 90 GM TUBE TP SCH (08:41)
[2019-03-10] MEDS: NEUPRO 6 MG TP SCH (08:45)
[2019-03-10 08:49] LABS: EOSINOPHILS % (MANUAL) 1 % (0-4); LYMPHOCYTES % (MANUAL) 13 % (16-48); MONOCYTES % (MANUAL) 6 % (0-11.0); NEUTROPHILS % (MANUAL) 80 (42-76)
--- NOTE | 2019-03-10 09:47 | NUR ---
MS RN NOTES PATIENT SEEN BY PHYSICAL THERAPY WITH DAUGHTER AT BEDSIDE. PER PT THEY WERE ABLE TO SIT UP PATIENT BUT PATIENT REMAINS TOO WEAK AND UNABLE TO FOLLOW COMMANDS.
[2019-03-10] MEDS: TAMSULOSIN 0.4 MG CAP.SR.24H PO SCH (13:19)
[2019-03-10] MEDS: MICAFUNGIN SODIUM 100 MG in IV NS 0.9% 100 ML IV SCH (13:19)
[2019-03-10] MEDS: CEFTRIAXONE 1 G in IV D5W 50 ML IV SCH (15:40)
[2019-03-10] MEDS: IV D5W 1,000 ML IV PRN (15:41)
[2019-03-10 16:00] VITALS: BP 90/63
--- NOTE | 2019-03-10 18:56 | NUR ---
MS RN CLOSING NOTES ALERT AND AWAKE. ORIENTED TO SELF. RESPONSIVE TO VERBAL AND TACTILE STIMULI. NON-VERBAL. HOB ELEVATED. NO SOB. ASPIRATION PRECAUTIONS OBSERVED AT ALL TIMES. NO EVIDENCE OF PAIN NOR DISCOMFORT AT THIS TIME. ON PUREED DIET WITH HONEY THICKENED LIQUID RAMILA WELL. ISIDRO # 20 SL INTACT AND PATENT INFUSING D5W @ 125ML/HR RAMILA WELL. BED IN LOWEST POSITION, LOCKED. BED SIDERAILS UP X2. CALL LIGHT WITHIN REACH. FREQUENT VISUAL CHECK DONE. IN NO APPARENT DISTRESS.
--- NOTE | 2019-03-10 19:30 | NUR ---
MS RN NOTES: PATIENT SLEEPING IN BED. NON VERBAL. NO ACUTE DISTRESS NOTED. BREATHING EVEN AND UNLABORED. NO SOB NOTED. IV ACCESS ON LEFT UPPER ARM #20G SL INTACT, AND PATENT. SAFETY MEASURES KEPT IN PLACE. BED IS IN LOW, LOCKED POSITION, SIDE RAILS UP X2. HOB ELEVATED. CALL LIGHT WITHIN REACH, WILL CONTINUE TO MONITOR.
[2019-03-10 20:31] VITALS: BP 102/63
[2019-03-11] MEDS ORDERED: AMPHOTERICIN B (CONVENTIONAL) 50 MG in WATER FOR INJECTION,STERILE 1,000 ML IR SCH (02:30)
[2019-03-11] MEDS ORDERED: BISACODYL SUPP (10 MG) 10 MG/SUPP.RECT SUPP.RECT RC PRN (02:30)
--- NOTE | 2019-03-11 04:00 | NUR ---
MS RN NOTES: NEW ORDER TO START BLADDER IRRIGATION FROM DR. STEPHENIE HERNANDEZ. NO STERILE WATER IRRIGATION 1000 ML BAG AVAILABLE. CHECKED WITH NURSING WHARF HAND AND OTHER UNITS. TO FOLLOW UP WITH DAY PHARMACY TO PREPARE MEDICATIONS.
[2019-03-11] MEDS ORDERED: AMPHOTERICIN B 50 MG ONE (04:13)
--- NOTE | 2019-03-11 06:46 | NUR ---
MS RN NOTES: PATIENT SLEEPING IN BED. NON VERBAL, OPENS EYES WITH VERBAL STIMULI. NO SOB OR ACUTE DISTRESS NOTED. BREATHING EVEN AND UNLABORED. NO SOB NOTED. IV ACCESS ON LEFT UPPER ARM #20G SL INTACT, AND PATENT. SAFETY MEASURES KEPT IN PLACE. BED IS IN LOW, LOCKED POSITION, SIDE RAILS UP X2. HOB ELEVATED. TURNED AND REPOSITIONED Q 2 HOURS. CALL LIGHT WITHIN REACH, ALL NURSING NEEDS MET AND PROVIDED. WILL ENDORSE TO DAY SHIFT FOR ANUPAMA.
[2019-03-11 07:04] LABS: CALCIUM, SERUM 8.6 mg/dL (8.5-10.1); CREATININE 0.8 mg/dL (0.6-1.3)
[2019-03-11 08:00] VITALS: BP 121/69
--- NOTE | 2019-03-11 08:00 | NUR ---
MS RN NOTES: PATIENT AWAKE. NON VERBAL, OPENS EYES WITH VERBAL STIMULI. NO SOB OR ACUTE DISTRESS NOTED. BREATHING EVEN AND UNLABORED. NO SOB NOTED. IV ACCESS ON LEFT UPPER ARM #20G SL INTACT, AND PATENT. FED PUREED DIET WITH HOB ELEVATED AND WITH ASPIRATION PRECAUTIONS.PT ATE 25% TOLERATED WELL WITH NO COUGHING NOTED.FOR BLADDER IRRIGATION OF AMPHOTERICIN IV RUNNING AT 41 ML/HR X 24 HRS.SAFETY MEASURES KEPT IN PLACE. BED IS IN LOW, LOCKED POSITION, SIDE RAILS UP X2. HOB ELEVATED. TURNED AND REPOSITIONED Q 2 HOURS. CALL LIGHT WITHIN REACH,
--- NOTE | 2019-03-11 08:30 | NUR ---
PT'S RT ARM IS SLIGHTLY RED DUE TO PREVIOUS IV H/L SITE PER DAUGHTER.APPLIED ICE PACK AND ELEVATED RT ARM WITH PILLOW.WILL CONTINUE TO MONITOR.
[2019-03-11] MEDS: LEVOTHYROXINE SODIUM 25 MCG TABLET PO SCH (09:22)
[2019-03-11] MEDS: CHOLECALCIFEROL 1,000 UNIT TABLET (VIT D3) PO SCH (09:23)
[2019-03-11] MEDS: CYANOCOBALAMIN 500 MCG TABLET PO SCH (09:23)
[2019-03-11] MEDS: AMPHOTERICIN B (CONVENTIONAL) 50 MG in WATER FOR INJECTION,STERILE 1,000 ML IR SCH (10:20)
[2019-03-11] MEDS: NEUPRO 6 MG TP SCH (10:25)
[2019-03-11] MEDS: HYDROGEL DRESSING 90 GM TUBE TP SCH (10:35)
[2019-03-11] MEDS ORDERED: FEE PK DOSING 1 MIN EA MC ONE (12:50)
[2019-03-11] MEDS: VANCOMYCIN 1 GM in IV D5W 250 ML IV SCH (14:03)
[2019-03-11] MEDS: TAMSULOSIN 0.4 MG CAP.SR.24H PO SCH (14:03)
[2019-03-11 16:00] VITALS: BP 112/80
--- NOTE | 2019-03-11 19:53 | NUR ---
PT RESTING IN BED AND REPOSITIONED EVERY TWO HRS.DENIES ANY PAIN OR DISTRESS.WITH ONGOING IV AMPHOTERICIN ATB BLADDER IRRIGATION WITH 1,900 ML YELLOW URINE OUTPUT.TOLERATED PUREED WITH HONEY THICK LIQUIDS.WILL MONITOR.
[2019-03-11 20:00] VITALS: BP 112/89
--- NOTE | 2019-03-11 20:00 | NUR ---
MS/RN OPENING NOTES PATIENT IN BED, AWAKE, NON VERBAL, RESPIRATION EVEN AND UNLABORED WITH OXYGEN AT 2LITER, DISTENDED ABDOMEN, ON BLADDER IRRIGATION, DANIEL CATHETER . SKIN WARM TO TOUCH, REQUIRE REPOSITIONING FOR COMFORT. OFFERED AND PROVIDED FLUIDS, ASPIRATIONS PRECAUTIONS FOLLOWED, WILL MONITOR.
--- NOTE | 2019-03-12 05:33 | NUR ---
MS/RN NOTES MD MADE AWARE REGARDING LOOSE STOL 3X AND RESULT OF KUB WITH SOME CHANGES INCREASE ILEUS AND DILATED SMALL BOWEL.
[2019-03-12] MEDS: VANCOMYCIN 1 GM in IV D5W 250 ML IV SCH (06:14)
--- NOTE | 2019-03-12 06:46 | NUR ---
MS/RN NOTES PATIENT IN BED,RESTING COMFORTABLY IN BED, RESPIRATIONS EVEN AND UNLABORED, ASSISTED AND REPOSITONED WILL MONITOR. KEPT SKIN INTACT AND DRY. ON IV ANTIBIOTIC RUNNING, ON LEFT UPPER ARM WITH NO S/S OF INFILTRATION.
[2019-03-12 07:12] LABS: BASOPHILS % (AUTO) 0.2 % (0.0-2.0); EOSINOPHILS % (AUTO) 3.5 % (0.0-6.0); HEMATOCRIT 39 % (39-51); HEMOGLOBIN 13.2 g/dL (13.5-17.5); LYMPHOCYTES # (AUTO) 0.8 /CMM (0.8-4.8); LYMPHOCYTES % (AUTO) 15.6 % (20.0-44.0); MEAN CORPUSCULAR HGB CONC 34 g/dl (31.0-36.0); MEAN CORPUSCULAR VOLUME 85 fL (80-96); MONOCYTES # (AUTO) 0.4 /CMM (0.1-1.30); MONOCYTES % (AUTO) 7.2 % (2.0-12.0); NEUTROPHILS # (AUTO) 3.6 /CMM (1.8-8.9); NEUTROPHILS % (AUTO) 73.5 % (43.0-81.0); PLATELET COUNT (AUTO) 123 /CMM (150-450); RED BLOOD CELL COUNT(AUTO) 4.56 MIL/uL (4.5-6.0); WHITE BLOOD COUNT (AUTO) 4.9 K/uL (4.3-11.0)
[2019-03-12 07:29] LABS: CALCIUM, SERUM 8.5 mg/dL (8.5-10.1); CREATININE 0.7 mg/dL (0.6-1.3); MAGNESIUM 2.2 mg/dL (1.8-2.4); PHOSPHORUS 2.5 mg/dL (2.5-4.9); POTASSIUM 3.4 mmol/L (3.5-5.1)
[2019-03-12 08:00] VITALS: BP 117/75
--- NOTE | 2019-03-12 08:00 | NUR ---
MS/RN NOTES PATIENT IN BED,RESTING COMFORTABLY IN BED, RESPIRATIONS EVEN AND UNLABORED, ASSISTED AND REPOSITIONED WILL MONITOR. KEPT SKIN INTACT AND DRY. ON IV ANTIBIOTIC BLADDER IRRIGATION RUNNING TO DANIEL CATHETER DRAINING CLEAR YELLOW URINE OUTPUT MODERATE IN AMOUNT., ON LEFT UPPER ARM H/L INTACT. WITH NO S/S OF INFILTRATION. CALL LIGHT PLACED WITHIN REACH.
[2019-03-12] MEDS: AMPHOTERICIN B (CONVENTIONAL) 50 MG in WATER FOR INJECTION,STERILE 1,000 ML IR SCH (09:00)
[2019-03-12] MEDS: CYANOCOBALAMIN 500 MCG TABLET PO SCH (09:20)
[2019-03-12] MEDS: CHOLECALCIFEROL 1,000 UNIT TABLET (VIT D3) PO SCH (09:21)
[2019-03-12] MEDS: LEVOTHYROXINE SODIUM 25 MCG TABLET PO SCH ×2 (09:21→09:30)
[2019-03-12] MEDS ORDERED: POTASSIUM CHLORIDE 20 MEQ POWDER PACKET PO ONE (10:45)
[2019-03-12] MEDS: HYDROGEL DRESSING 90 GM TUBE TP SCH (11:02)
[2019-03-12] MEDS: NEUPRO 6 MG TP SCH (11:15)
[2019-03-12] MEDS ORDERED: BISA10SU11 RC (11:30)
[2019-03-12] MEDS ORDERED: TAMS-12 PO (11:30)
[2019-03-12] MEDS: TAMSULOSIN 0.4 MG CAP.SR.24H PO SCH (13:47)
[2019-03-12 16:00] VITALS: BP 128/95
--- NOTE | 2019-03-12 18:35 | NUR ---
PT/PT'S DAUGHTER,ELIN AWAITING FOR AMBULANCE A OPERATOR. IV H/L TO LT AC REMOVED WITHOUT BLEEDING OR SWELLING NOTED ON THE SITE.DANIEL CATHETER REMOVED WITH 550 ML YELLOW BROWN URINE OUTPUT. DISCHARGE INSTRUCTIONS AND PRESCRIPTIONS HANDED TO ELIN,PT'S DAUGHTER. FAXED PRESCRIPTION TO PT'S HOME PHARMACY.
--- NOTE | 2019-03-12 18:39 | NUR ---
PT HAS NO S/S OF PAIN OR DISTRESS.TURNED EVERY TWO HRS DURING THE SHIFT AND WOUND/SKIN CARE DONE.
--- NOTE | 2019-03-12 18:50 | NUR ---
DISCHARGED PT HOME WITH STABLE V/S VIA AMBULANCE.DENIES ANY PAIN OR DISTRESS PER PT'S DAUGHTER,ELIN.
== END 2019-03-12 18:53 | disposition home or self-care (01) | DRG 673 ==
LOC: ER 10:52 → TELE 14:13 → MED 03-06 09:15
PROVIDERS: ADMIT Nurse Practitioner Acute Care; ATTEND Registered Nurse
PROC: 0JB70ZZ Excision of Back Subcutaneous Tissue and Fascia, Open Approach (ICD-10-PCS; principal; 2019-03-06)
PROC: 0JB70ZZ Excision of Back Subcutaneous Tissue and Fascia, Open Approach (ICD-10-PCS; 2019-03-10)
DX: N17.0 Acute kidney failure with tubular necrosis (principal); L89.623 Pressure ulcer of left heel, stage 3; G93.41 Metabolic encephalopathy; E87.0 Hyperosmolality and hypernatremia; E46 Unspecified protein-calorie malnutrition; L97.429 Non-pressure chronic ulcer of left heel and midfoot with unspecified severity; B37.49 Other urogenital candidiasis; K31.0 Acute dilatation of stomach; K56.7 Ileus, unspecified; J98.11 Atelectasis; L03.113 Cellulitis of right upper limb; E86.0 Dehydration; I10 Essential (primary) hypertension; F02.80 Dementia in other diseases classified elsewhere, unspecified severity, without behavioral disturbance, psychotic disturbance, mood disturbance, and anxiety; N40.0 Benign prostatic hyperplasia without lower urinary tract symptoms; G20 Parkinson's disease; R13.10 Dysphagia, unspecified; G30.9 Alzheimer's disease, unspecified; D63.8 Anemia in other chronic diseases classified elsewhere; D69.6 Thrombocytopenia, unspecified; E03.9 Hypothyroidism, unspecified; E83.51 Hypocalcemia; E83.39 Other disorders of phosphorus metabolism; Z74.01 Bed confinement status; I67.2 Cerebral atherosclerosis; L89.120 Pressure ulcer of left upper back, unstageable
CPT/HCPCS: 36415; 70450-TC; 71045-TC; 74018; 80048-TC; 80053-TC; 80061-TC; 80076-TC; 81000-TC; 82140-TC; 83540-TC; 83605-TC; 83735-TC; 84100-TC; 84443-TC; 84484-TC; 85025-TC; 85730-TC; 87040-TC; 87081-TC; 87086-TC; 92521; 92526; 93307-TC; 97110-TC; 97112-TC; 97530-TC; A4216; A4217; A6248; A6403; G0378; J0285; J0696; J1450; J2248; J3370; J3490; J7030; J7050; J7060; J7070

== ENCOUNTER 2019-04-14 14:00 | Outpatient (CLI) | payer MEDICARE, MEDICAID ==
[~2019-04-14 14:00] MED LIST: BISA10SU11 RC; CHOL100044 PO; CYAN-24 PO; LEVO25TA9 PO; NEUPRO TD; TAMS-12 PO
== END 2019-04-14 23:59 | disposition home health service (06) ==
LOC: WOU 14:00
PROVIDERS: ATTEND Surgery
DX: L89.153 Pressure ulcer of sacral region, stage 3 (principal); L30.4 Erythema intertrigo; M62.50 Muscle wasting and atrophy, not elsewhere classified, unspecified site; G30.8 Other Alzheimer's disease; F02.80 Dementia in other diseases classified elsewhere, unspecified severity, without behavioral disturbance, psychotic disturbance, mood disturbance, and anxiety; Z74.09 Other reduced mobility
CPT/HCPCS: 11042; A6209 ×2

== ENCOUNTER 2019-04-21 12:07 | Outpatient (CLI) | payer MEDICARE, MEDICAID | END 2019-04-21 23:59 | disposition home health service (06) | LOC: WOU 12:07 | PROVIDERS: ATTEND Surgery | DX: L89.153 Pressure ulcer of sacral region, stage 3 (principal); L30.4 Erythema intertrigo; M62.50 Muscle wasting and atrophy, not elsewhere classified, unspecified site; G30.8 Other Alzheimer's disease; Z74.09 Other reduced mobility | CPT/HCPCS: 11042; A6209 ==

== ENCOUNTER 2019-06-11 11:40 | Outpatient (CLI) | payer MEDICARE, MEDICAID | END 2019-06-11 23:59 | disposition home health service (06) | LOC: WOU 11:40 | PROVIDERS: ATTEND Surgery | DX: L89.154 Pressure ulcer of sacral region, stage 4 (principal); G30.9 Alzheimer's disease, unspecified; F02.80 Dementia in other diseases classified elsewhere, unspecified severity, without behavioral disturbance, psychotic disturbance, mood disturbance, and anxiety; L30.4 Erythema intertrigo; M62.50 Muscle wasting and atrophy, not elsewhere classified, unspecified site; Z74.09 Other reduced mobility; E46 Unspecified protein-calorie malnutrition; Z68.22 Body mass index [BMI] 22.0-22.9, adult; G20 Parkinson's disease | CPT/HCPCS: 11042 ==

== ENCOUNTER 2019-06-17 19:00 | Emergency (ER) | payer MEDICARE, MEDICAID ==
[~2019-06-17] VITALS: Ht 182.9 cm; Wt 59.0 kg
--- NOTE | 2019-06-17 19:47 | NUR ---
PT BIBF C/O DANIEL CATHETER NOT WORKING. UPON ARRIVAL, DANIEL BAG WAS CHECKED. 150 ML URINE OUTPUT NOTED. PT CONNECTED TO THE MONITOR AND POX.
[2019-06-17] MEDS ORDERED: IV NS 0.9% 1,000 ML BAG IV ONE (20:30)
--- NOTE | 2019-06-17 20:30 | NUR ---
BLOOD COLLECTED AND SENT TO LAB
[2019-06-17 20:54] LABS: BASOPHILS # (AUTO) 0.1 /CMM (0.0-0.2); BASOPHILS % (AUTO) 1.4 % (0.0-2.0); EOSINOPHILS % (AUTO) 1.8 % (0.0-6.0); HEMATOCRIT 37 % (39-51); HEMOGLOBIN 12.2 g/dL (13.5-17.5); LYMPHOCYTES # (AUTO) 1.1 /CMM (0.8-4.8); MEAN CORPUSCULAR HGB CONC 33 g/dl (31.0-36.0); MEAN CORPUSCULAR VOLUME 89 fL (80-96); MONOCYTES # (AUTO) 0.3 /CMM (0.1-1.30); MONOCYTES % (AUTO) 5.8 % (2.0-12.0); NEUTROPHILS # (AUTO) 3.3 /CMM (1.8-8.9); PLATELET COUNT (AUTO) 127 /CMM (150-450); RED BLOOD CELL COUNT(AUTO) 4.15 MIL/uL (4.5-6.0); WHITE BLOOD COUNT (AUTO) 4.8 K/uL (4.3-11.0)
[2019-06-17 21:04] LABS: CALCIUM, SERUM 8.6 mg/dL (8.5-10.1); CREATININE 0.8 mg/dL (0.6-1.3); POTASSIUM 2.7 mmol/L (3.5-5.1)
[2019-06-17] MEDS ORDERED: POTASSIUM CHLORIDE 20 MEQ POWDER PACKET ONE (21:14)
[2019-06-17] MEDS ORDERED: POTASSIUM CL. PREMIX PERIPHER. 200 ML ONE (21:16)
[2019-06-17] MEDS ORDERED: POTASSIUM CHLORIDE 20 MEQ TAB.PRT.SR PO ONE (21:30)
--- NOTE | 2019-06-17 21:30 | NUR ---
PT'S DAUGHTER SIGNED AMA FORM. WILL GET DISCHARGED AFTER POTASSIUM INFUSION. MADE AWARE
[2019-06-17] MEDS: POTASSIUM CL. PREMIX PERIPHER. 50 ML IV SCH ×3 (21:34→23:36)
[2019-06-18] MEDS: POTASSIUM CL. PREMIX PERIPHER. 50 ML IV SCH (00:35)
--- NOTE | 2019-06-18 01:47 | NUR ---
Patient does not wish to proceed with medical care recommended by Dr. Fernandez. Family given information related to possible complications, up to and including , which could occur as a result of leaving the hospital at this time. Daughter verbalizes understanding of risks involved due to leaving against medical advice. Patient's daughter has signed AMA form.
[2019-06-18 01:48] VITALS: BP 100/70
== END 2019-06-18 01:48 | disposition home or self-care (01) ==
LOC: ER 19:07
DX: E86.0 Dehydration (principal); E87.6 Hypokalemia; D64.9 Anemia, unspecified; I10 Essential (primary) hypertension; F03.90 Unspecified dementia, unspecified severity, without behavioral disturbance, psychotic disturbance, mood disturbance, and anxiety; E03.9 Hypothyroidism, unspecified; N40.0 Benign prostatic hyperplasia without lower urinary tract symptoms; Z79.899 Other long term (current) drug therapy
CPT/HCPCS: 36415; 80048; 83735; 85025; 93005 ×2; 96361; 96365; 96366 ×2; 99285; J3480; J7030

== ENCOUNTER 2019-07-07 11:40 | Outpatient (CLI) | payer MEDICARE, OTHER | END 2019-07-07 23:59 | disposition home health service (06) | LOC: WOU 11:40 | PROVIDERS: ATTEND Surgery | DX: L89.154 Pressure ulcer of sacral region, stage 4 (principal); M62.50 Muscle wasting and atrophy, not elsewhere classified, unspecified site; E46 Unspecified protein-calorie malnutrition; Z68.22 Body mass index [BMI] 22.0-22.9, adult; Z74.09 Other reduced mobility; G30.9 Alzheimer's disease, unspecified; F02.80 Dementia in other diseases classified elsewhere, unspecified severity, without behavioral disturbance, psychotic disturbance, mood disturbance, and anxiety | CPT/HCPCS: 11042 ==

== ENCOUNTER 2019-08-01 11:50 | Outpatient (CLI) | payer MEDICARE, OTHER | END 2019-08-01 23:59 | disposition home health service (06) | LOC: WOU 11:50 | PROVIDERS: ATTEND Surgery | DX: L89.154 Pressure ulcer of sacral region, stage 4 (principal); L89.326 Pressure-induced deep tissue damage of left buttock; M62.50 Muscle wasting and atrophy, not elsewhere classified, unspecified site; G30.8 Other Alzheimer's disease; Z74.09 Other reduced mobility | CPT/HCPCS: 11042 ==

== ENCOUNTER 2019-09-12 11:28 | Outpatient (CLI) | payer MEDICARE, OTHER | END 2019-09-12 23:59 | disposition home health service (06) | LOC: WOU 11:28 | PROVIDERS: ATTEND Surgery | DX: L89.324 Pressure ulcer of left buttock, stage 4 (principal); M62.50 Muscle wasting and atrophy, not elsewhere classified, unspecified site; Z74.09 Other reduced mobility; G30.8 Other Alzheimer's disease; E46 Unspecified protein-calorie malnutrition; Z68.22 Body mass index [BMI] 22.0-22.9, adult | CPT/HCPCS: 11043; A6407; J3490 ==

== ENCOUNTER 2019-09-19 11:35 | Outpatient (CLI) | payer MEDICARE, OTHER | END 2019-09-19 23:59 | disposition home health service (06) | LOC: WOU 11:35 | PROVIDERS: ATTEND Surgery | DX: L89.324 Pressure ulcer of left buttock, stage 4 (principal); M62.50 Muscle wasting and atrophy, not elsewhere classified, unspecified site; E46 Unspecified protein-calorie malnutrition; Z68.22 Body mass index [BMI] 22.0-22.9, adult; Z74.09 Other reduced mobility; G30.8 Other Alzheimer's disease | CPT/HCPCS: 11043; J3490 ==

== ENCOUNTER 2019-09-26 11:45 | Outpatient (CLI) | payer MEDICARE, OTHER | END 2019-09-26 23:59 | disposition home health service (06) | LOC: WOU 11:45 | PROVIDERS: ATTEND Surgery | DX: L89.324 Pressure ulcer of left buttock, stage 4 (principal); M62.50 Muscle wasting and atrophy, not elsewhere classified, unspecified site; G30.8 Other Alzheimer's disease; Z74.09 Other reduced mobility; E46 Unspecified protein-calorie malnutrition; Z68.22 Body mass index [BMI] 22.0-22.9, adult | CPT/HCPCS: 11043; J3490 ==

== ENCOUNTER 2019-10-06 11:15 | Outpatient (CLI) | payer MEDICARE, OTHER ==
[2019-10-06 12:23] LABS: PREALBUMIN 14.6 MG/DL (18.0-35.7)
[2019-10-06 12:31] LABS: ALBUMIN 2.8 g/dL (3.4-5.0)
== END 2019-10-06 23:59 | disposition home health service (06) ==
LOC: WOU 11:15
PROVIDERS: ATTEND Surgery
DX: L89.324 Pressure ulcer of left buttock, stage 4 (principal); M62.50 Muscle wasting and atrophy, not elsewhere classified, unspecified site; E46 Unspecified protein-calorie malnutrition; Z68.22 Body mass index [BMI] 22.0-22.9, adult; G30.8 Other Alzheimer's disease; Z74.09 Other reduced mobility
CPT/HCPCS: 11043; 36415; 82040; 84134; A6407; J3490

== ENCOUNTER 2019-10-16 13:00 | Outpatient (CLI) | payer MEDICARE, OTHER | END 2019-10-16 23:59 | disposition home health service (06) | LOC: WOU 13:00 | PROVIDERS: ATTEND Surgery | DX: L89.324 Pressure ulcer of left buttock, stage 4 (principal); M62.50 Muscle wasting and atrophy, not elsewhere classified, unspecified site; E46 Unspecified protein-calorie malnutrition; Z68.22 Body mass index [BMI] 22.0-22.9, adult; Z74.09 Other reduced mobility; G30.8 Other Alzheimer's disease | CPT/HCPCS: 11043; 11046; 72192; J3490 ==

== ENCOUNTER 2019-10-23 13:45 | Outpatient (CLI) | payer MEDICARE, OTHER | END 2019-10-23 23:59 | disposition home or self-care (01) | LOC: WOU 13:45 | PROVIDERS: ATTEND Surgery | DX: Z75.3 Unavailability and inaccessibility of health-care facilities (principal) | CPT/HCPCS: 87070-TC; 87186-TC ==

== ENCOUNTER 2019-10-23 14:00 | Outpatient (CLI) | payer MEDICARE, OTHER | END 2019-10-23 23:59 | disposition home health service (06) | LOC: WOU 14:00 | PROVIDERS: ATTEND Internal Medicine Infectious Disease | DX: L89.324 Pressure ulcer of left buttock, stage 4 (principal); M46.28 Osteomyelitis of vertebra, sacral and sacrococcygeal region; E46 Unspecified protein-calorie malnutrition; Z68.22 Body mass index [BMI] 22.0-22.9, adult; G30.8 Other Alzheimer's disease; M62.50 Muscle wasting and atrophy, not elsewhere classified, unspecified site; Z74.09 Other reduced mobility | CPT/HCPCS: 11043; 87070; 87077; 87186; G0463 ==

== ENCOUNTER 2019-10-30 13:00 | Outpatient (CLI) | payer MEDICARE, OTHER | END 2019-10-30 23:59 | disposition home health service (06) | LOC: WOU 13:00 | PROVIDERS: ATTEND Surgery | DX: L89.324 Pressure ulcer of left buttock, stage 4 (principal); E46 Unspecified protein-calorie malnutrition; Z68.22 Body mass index [BMI] 22.0-22.9, adult; M62.50 Muscle wasting and atrophy, not elsewhere classified, unspecified site; Z74.09 Other reduced mobility; G30.8 Other Alzheimer's disease | CPT/HCPCS: 11043 ==

== ENCOUNTER 2019-11-05 14:05 | Outpatient (CLI) | payer MEDICARE, OTHER | END 2019-11-05 23:59 | disposition home or self-care (01) | LOC: WOU 14:05 | PROVIDERS: ATTEND Nurse Practitioner Acute Care | DX: Z45.2 Encounter for adjustment and management of vascular access device (principal); Z79.2 Long term (current) use of antibiotics; M86.9 Osteomyelitis, unspecified | CPT/HCPCS: 36569; C1751 ==

== ENCOUNTER 2019-11-06 13:05 | Outpatient (CLI) | payer MEDICARE, OTHER | END 2019-11-06 23:59 | disposition home health service (06) | LOC: WOU 13:05 | PROVIDERS: ATTEND Surgery | DX: L89.324 Pressure ulcer of left buttock, stage 4 (principal); M62.50 Muscle wasting and atrophy, not elsewhere classified, unspecified site; G30.8 Other Alzheimer's disease; Z74.09 Other reduced mobility; E46 Unspecified protein-calorie malnutrition; Z68.22 Body mass index [BMI] 22.0-22.9, adult; M86.9 Osteomyelitis, unspecified | CPT/HCPCS: 11044; 11047 ==

== ENCOUNTER 2019-11-10 10:04 | Outpatient (CLI) | payer MEDICARE, MEDICAID | END 2019-11-10 23:59 | disposition home or self-care (01) | LOC: WOU 10:04 | PROVIDERS: ATTEND Nurse Practitioner Acute Care | DX: Z45.2 Encounter for adjustment and management of vascular access device (principal); M46.28 Osteomyelitis of vertebra, sacral and sacrococcygeal region; G20 Parkinson's disease; F02.80 Dementia in other diseases classified elsewhere, unspecified severity, without behavioral disturbance, psychotic disturbance, mood disturbance, and anxiety; Z87.440 Personal history of urinary (tract) infections | CPT/HCPCS: 36569; 71045; C1751 ==

== ENCOUNTER 2019-11-20 13:09 | Outpatient (CLI) | payer MEDICARE, MEDICAID | END 2019-11-20 23:59 | disposition home health service (06) | LOC: WOU 13:09 | PROVIDERS: ATTEND Surgery | DX: L89.324 Pressure ulcer of left buttock, stage 4 (principal); L89.154 Pressure ulcer of sacral region, stage 4; M86.9 Osteomyelitis, unspecified; E46 Unspecified protein-calorie malnutrition; Z68.22 Body mass index [BMI] 22.0-22.9, adult; G30.8 Other Alzheimer's disease; M62.50 Muscle wasting and atrophy, not elsewhere classified, unspecified site; Z74.09 Other reduced mobility | CPT/HCPCS: 11044 ==

== ENCOUNTER 2019-12-11 13:10 | Outpatient (CLI) | payer MEDICARE, MEDICAID | END 2019-12-11 23:59 | disposition home health service (06) | LOC: WOU 13:10 | PROVIDERS: ATTEND Surgery | DX: L89.324 Pressure ulcer of left buttock, stage 4 (principal); G30.8 Other Alzheimer's disease; M62.50 Muscle wasting and atrophy, not elsewhere classified, unspecified site; Z74.09 Other reduced mobility; E46 Unspecified protein-calorie malnutrition; Z68.22 Body mass index [BMI] 22.0-22.9, adult | CPT/HCPCS: 11044; 11047 ==

== ENCOUNTER 2019-12-18 12:45 | Outpatient (CLI) | payer MEDICARE, MEDICAID | END 2019-12-18 23:59 | disposition home health service (06) | LOC: WOU 12:45 | PROVIDERS: ATTEND Surgery | DX: L89.324 Pressure ulcer of left buttock, stage 4 (principal); E46 Unspecified protein-calorie malnutrition; Z68.22 Body mass index [BMI] 22.0-22.9, adult; M62.50 Muscle wasting and atrophy, not elsewhere classified, unspecified site; G30.8 Other Alzheimer's disease | CPT/HCPCS: 11044 ==

== ENCOUNTER 2019-12-25 13:30 | Outpatient (CLI) | payer MEDICARE, MEDICAID ==
[2019-12-25] MEDS ORDERED: Z GUARD REMEDY 2 OZ OINT TP ONE (13:56)
== END 2019-12-25 23:59 | disposition home health service (06) ==
LOC: WOU 13:30
PROVIDERS: ATTEND Surgery
DX: L89.324 Pressure ulcer of left buttock, stage 4 (principal); E46 Unspecified protein-calorie malnutrition; Z68.22 Body mass index [BMI] 22.0-22.9, adult; M62.50 Muscle wasting and atrophy, not elsewhere classified, unspecified site; G30.8 Other Alzheimer's disease
CPT/HCPCS: 11043

== ENCOUNTER 2020-01-08 13:35 | Outpatient (CLI) | payer MEDICARE, MEDICAID ==
[2020-01-08] MEDS ORDERED: Z GUARD REMEDY 2 OZ OINT TP ONE (14:03)
== END 2020-01-08 23:59 | disposition home health service (06) ==
LOC: WOU 13:35
PROVIDERS: ATTEND Surgery
DX: L89.324 Pressure ulcer of left buttock, stage 4 (principal); M62.50 Muscle wasting and atrophy, not elsewhere classified, unspecified site; E46 Unspecified protein-calorie malnutrition; Z68.22 Body mass index [BMI] 22.0-22.9, adult; G30.8 Other Alzheimer's disease; Z74.09 Other reduced mobility
CPT/HCPCS: 11043

== ENCOUNTER 2020-01-15 13:30 | Outpatient (CLI) | payer MEDICARE, MEDICAID ==
[~2020-01-15 13:30] MED LIST changes: +LIDOCAINE SOLN 4% 50 ML BOTTLE ONE
[2020-01-15] MEDS ORDERED: CLOTRIMAZOLE 1% 15 GM TUBE TP ONE (13:57)
[2020-01-15] MEDS ORDERED: TRIAMCINOLONE ACETONIDE 0.1% CR 15 GM TUBE TP ONE (13:58)
[2020-01-15 14:51] LABS: ALBUMIN 2.7 g/dL (3.4-5.0)
[2020-01-15 15:07] LABS: PREALBUMIN 15.6 MG/DL (18.0-35.7)
== END 2020-01-15 23:59 | disposition home health service (06) ==
LOC: WOU 13:30
PROVIDERS: ATTEND Surgery
DX: L89.324 Pressure ulcer of left buttock, stage 4 (principal); M62.50 Muscle wasting and atrophy, not elsewhere classified, unspecified site; E46 Unspecified protein-calorie malnutrition; Z68.22 Body mass index [BMI] 22.0-22.9, adult; G30.8 Other Alzheimer's disease; Z74.09 Other reduced mobility
CPT/HCPCS: 11043; 36415; 82040-TC; 84134-TC

== ENCOUNTER 2020-01-22 13:30 | Outpatient (CLI) | payer MEDICARE, MEDICAID ==
[~2020-01-22 13:30] MED LIST changes: -LIDOCAINE SOLN 4% 50 ML BOTTLE ONE
[2020-01-22] MEDS ORDERED: TRIAMCINOLONE ACETONIDE 0.1% CR 15 GM TUBE TP ONE (14:10)
[2020-01-22] MEDS ORDERED: CLOTRIMAZOLE 1% 15 GM TUBE TP ONE (14:10)
[2020-01-22] MEDS ORDERED: DAKINS HALF STRENGTH (0.25%) 480 ML BOTTLE ONE (14:11)
== END 2020-01-22 23:59 | disposition home health service (06) ==
LOC: WOU 13:30
PROVIDERS: ATTEND Surgery
DX: L89.324 Pressure ulcer of left buttock, stage 4 (principal); M62.50 Muscle wasting and atrophy, not elsewhere classified, unspecified site; E46 Unspecified protein-calorie malnutrition; Z68.22 Body mass index [BMI] 22.0-22.9, adult; G30.8 Other Alzheimer's disease; Z74.09 Other reduced mobility
CPT/HCPCS: 11043

== ENCOUNTER 2020-02-19 12:48 | Outpatient (CLI) | payer MEDICARE, MEDICAID ==
[2020-02-19] MEDS ORDERED: DAKINS HALF STRENGTH (0.25%) 480 ML BOTTLE ONE (13:10)
== END 2020-02-19 23:59 | disposition home health service (06) ==
LOC: WOU 12:48
PROVIDERS: ATTEND Surgery
DX: L89.324 Pressure ulcer of left buttock, stage 4 (principal); E46 Unspecified protein-calorie malnutrition; Z68.22 Body mass index [BMI] 22.0-22.9, adult; M62.50 Muscle wasting and atrophy, not elsewhere classified, unspecified site; G30.8 Other Alzheimer's disease; Z74.09 Other reduced mobility
CPT/HCPCS: 11043

== ENCOUNTER → 2020-02-26 | Outpatient (CLI) | payer MEDICARE, MEDICAID ==
[~2020-02-26] MED LIST changes: +CLOTRIMAZOLE 1% 15 GM TUBE TP ONE; +LIDOCAINE SOLN 4% 50 ML BOTTLE ONE; +TRIAMCINOLONE ACETONIDE 0.1% CR 15 GM TUBE TP ONE
== END | disposition home health service (06) ==
LOC: WOU 13:00
PROVIDERS: ATTEND Surgery
DX: L89.324 Pressure ulcer of left buttock, stage 4 (principal); E46 Unspecified protein-calorie malnutrition; Z68.22 Body mass index [BMI] 22.0-22.9, adult; M62.50 Muscle wasting and atrophy, not elsewhere classified, unspecified site; G30.8 Other Alzheimer's disease; Z74.09 Other reduced mobility
CPT/HCPCS: 11043

== ENCOUNTER 2020-03-04 12:55 | Outpatient (CLI) | payer MEDICARE, MEDICAID ==
[~2020-03-04 12:55] MED LIST changes: -CLOTRIMAZOLE 1% 15 GM TUBE TP ONE; -LIDOCAINE SOLN 4% 50 ML BOTTLE ONE; -TRIAMCINOLONE ACETONIDE 0.1% CR 15 GM TUBE TP ONE
[2020-03-04] MEDS ORDERED: LIDOCAINE SOLN 4% 50 ML BOTTLE ONE (13:09)
== END 2020-03-04 23:59 | disposition home health service (06) ==
LOC: WOU 12:55
PROVIDERS: ATTEND Surgery
DX: L89.324 Pressure ulcer of left buttock, stage 4 (principal); E46 Unspecified protein-calorie malnutrition; Z68.22 Body mass index [BMI] 22.0-22.9, adult; M62.50 Muscle wasting and atrophy, not elsewhere classified, unspecified site; G30.8 Other Alzheimer's disease; Z74.09 Other reduced mobility; B49 Unspecified mycosis
CPT/HCPCS: 11043

== ENCOUNTER 2020-04-05 12:30 | Outpatient (CLI) | payer MEDICARE, MEDICAID ==
[~2020-04-05 12:30] MED LIST changes: +LIDOCAINE SOLN 4% 50 ML BOTTLE ONE
== END 2020-04-05 23:59 | disposition home health service (06) ==
LOC: WOU 12:30
PROVIDERS: ATTEND Surgery
DX: L89.324 Pressure ulcer of left buttock, stage 4 (principal); G30.8 Other Alzheimer's disease; Z74.09 Other reduced mobility; M62.50 Muscle wasting and atrophy, not elsewhere classified, unspecified site
CPT/HCPCS: 11043; A6407 ×2

== ENCOUNTER 2020-04-15 13:20 | Outpatient (CLI) | payer MEDICARE, MEDICAID | END 2020-04-15 23:59 | disposition home health service (06) | LOC: WOU 13:20 | PROVIDERS: ATTEND Surgery | DX: L89.324 Pressure ulcer of left buttock, stage 4 (principal); M62.50 Muscle wasting and atrophy, not elsewhere classified, unspecified site; E46 Unspecified protein-calorie malnutrition; Z68.22 Body mass index [BMI] 22.0-22.9, adult; G30.8 Other Alzheimer's disease; Z74.09 Other reduced mobility | CPT/HCPCS: 11043; A6407 ==

== ENCOUNTER 2020-05-06 13:35 | Outpatient (CLI) | payer MEDICARE, MEDICAID ==
[~2020-05-06 13:35] MED LIST changes: -LIDOCAINE SOLN 4% 50 ML BOTTLE ONE
[2020-05-06] MEDS ORDERED: LIDOCAINE SOLN 4% 50 ML BOTTLE ONE (13:51)
== END 2020-05-06 23:59 | disposition home health service (06) ==
LOC: WOU 13:35
PROVIDERS: ATTEND Surgery
DX: L89.324 Pressure ulcer of left buttock, stage 4 (principal); E46 Unspecified protein-calorie malnutrition; Z68.22 Body mass index [BMI] 22.0-22.9, adult; M62.50 Muscle wasting and atrophy, not elsewhere classified, unspecified site; G30.8 Other Alzheimer's disease; Z74.09 Other reduced mobility
CPT/HCPCS: 11043; J1447

== ENCOUNTER 2020-06-10 16:00 | Outpatient (CLI) | payer MEDICARE, MEDICAID | END 2020-06-10 23:59 | disposition home or self-care (01) | LOC: WOU 16:00 | PROVIDERS: ATTEND Surgery | DX: L89.324 Pressure ulcer of left buttock, stage 4 (principal); E46 Unspecified protein-calorie malnutrition; Z68.22 Body mass index [BMI] 22.0-22.9, adult; M62.50 Muscle wasting and atrophy, not elsewhere classified, unspecified site; G30.8 Other Alzheimer's disease; Z74.09 Other reduced mobility | CPT/HCPCS: G0463 ==

== ENCOUNTER 2020-06-17 13:50 | Outpatient (CLI) | payer MEDICARE, MEDICAID ==
[~2020-06-17 13:50] MED LIST changes: +LIDOCAINE SOLN 4% 50 ML BOTTLE ONE
[2020-06-17] MEDS ORDERED: DAKINS HALF STRENGTH (0.25%) 480 ML BOTTLE ONE (15:04)
[2020-06-17] MEDS ORDERED: Z GUARD REMEDY 2 OZ OINT TP ONE (15:04)
== END 2020-06-17 23:59 | disposition home health service (06) ==
LOC: WOU 13:50
PROVIDERS: ATTEND Podiatrist Foot & Ankle Surgery
DX: L89.324 Pressure ulcer of left buttock, stage 4 (principal); Z74.09 Other reduced mobility; E46 Unspecified protein-calorie malnutrition; Z68.22 Body mass index [BMI] 22.0-22.9, adult; M62.50 Muscle wasting and atrophy, not elsewhere classified, unspecified site; G30.8 Other Alzheimer's disease
CPT/HCPCS: 11043

== ENCOUNTER 2020-07-01 14:00 | Outpatient (CLI) | payer MEDICARE, MEDICAID | END 2020-07-01 23:59 | disposition home health service (06) | LOC: WOU 14:00 | PROVIDERS: ATTEND Surgery | DX: L89.324 Pressure ulcer of left buttock, stage 4 (principal); M62.50 Muscle wasting and atrophy, not elsewhere classified, unspecified site; M62.40 Contracture of muscle, unspecified site; Z74.09 Other reduced mobility; E46 Unspecified protein-calorie malnutrition; Z68.22 Body mass index [BMI] 22.0-22.9, adult; G30.8 Other Alzheimer's disease | CPT/HCPCS: 11044 ==

== ENCOUNTER 2020-07-08 14:30 | Outpatient (CLI) | payer MEDICARE, MEDICAID ==
[~2020-07-08 14:30] MED LIST changes: -LIDOCAINE SOLN 4% 50 ML BOTTLE ONE
== END 2020-07-08 23:59 | disposition home health service (06) ==
LOC: WOU 14:30
PROVIDERS: ATTEND Surgery
DX: L89.324 Pressure ulcer of left buttock, stage 4 (principal); G30.8 Other Alzheimer's disease; M62.50 Muscle wasting and atrophy, not elsewhere classified, unspecified site; M62.48 Contracture of muscle, other site; Z74.09 Other reduced mobility; E46 Unspecified protein-calorie malnutrition; Z68.22 Body mass index [BMI] 22.0-22.9, adult
CPT/HCPCS: 11043

== ENCOUNTER 2020-07-22 13:45 | Outpatient (CLI) | payer MEDICARE, MEDICAID ==
[2020-07-22] MEDS ORDERED: LIDOCAINE SOLN 4% 50 ML BOTTLE ONE (13:46)
[2020-07-22] MEDS ORDERED: Z GUARD REMEDY 2 OZ OINT TP ONE (14:10)
[2020-07-22] MEDS ORDERED: OXYMETAZOLINE HCL NASAL SPRAY 30 ML BOTTLE NS ONE (14:30)
== END 2020-07-22 23:59 | disposition home health service (06) ==
LOC: WOU 13:45
PROVIDERS: ATTEND Surgery
DX: L89.324 Pressure ulcer of left buttock, stage 4 (principal); E46 Unspecified protein-calorie malnutrition; Z68.22 Body mass index [BMI] 22.0-22.9, adult; M62.462 Contracture of muscle, left lower leg; M62.461 Contracture of muscle, right lower leg; M62.50 Muscle wasting and atrophy, not elsewhere classified, unspecified site; Z74.09 Other reduced mobility; G30.8 Other Alzheimer's disease
CPT/HCPCS: 11043

== ENCOUNTER 2020-08-26 13:50 | Outpatient (CLI) | payer MEDICARE, MEDICAID ==
[2020-08-26] MEDS ORDERED: Z GUARD REMEDY 2 OZ OINT TP ONE (14:16)
[2020-08-26] MEDS ORDERED: LIDOCAINE SOLN 4% 50 ML BOTTLE ONE (14:39)
== END 2020-08-26 23:59 | disposition home health service (06) ==
LOC: WOU 13:50
PROVIDERS: ATTEND Surgery
DX: L89.324 Pressure ulcer of left buttock, stage 4 (principal); G30.8 Other Alzheimer's disease; M62.50 Muscle wasting and atrophy, not elsewhere classified, unspecified site
CPT/HCPCS: 11043

== ENCOUNTER 2020-09-09 13:20 | Outpatient (CLI) | payer MEDICARE, MEDICAID ==
[2020-09-09] MEDS ORDERED: LIDOCAINE SOLN 4% 50 ML BOTTLE ONE (13:30)
[2020-09-09] MEDS ORDERED: TRIAMCINOLONE ACETONIDE 0.1% CR 15 GM TUBE TP ONE (14:14)
[2020-09-09] MEDS ORDERED: CLOTRIMAZOLE 1% 15 GM TUBE TP ONE (14:14)
== END 2020-09-09 23:59 | disposition home health service (06) ==
LOC: WOU 13:20
PROVIDERS: ATTEND Surgery
DX: L89.324 Pressure ulcer of left buttock, stage 4 (principal); L89.891 Pressure ulcer of other site, stage 1; M62.50 Muscle wasting and atrophy, not elsewhere classified, unspecified site; Z74.09 Other reduced mobility; G30.8 Other Alzheimer's disease; E46 Unspecified protein-calorie malnutrition; Z68.22 Body mass index [BMI] 22.0-22.9, adult; M24.50 Contracture, unspecified joint
CPT/HCPCS: 11043; A6407

== ENCOUNTER 2020-09-20 13:30 | Outpatient (CLI) | payer MEDICARE, OTHER ==
[2020-09-20] MEDS ORDERED: LIDOCAINE SOLN 4% 50 ML BOTTLE ONE (13:41)
[2020-09-20] MEDS ORDERED: Z GUARD REMEDY 2 OZ OINT TP ONE (14:04)
== END 2020-09-20 23:59 | disposition home health service (06) ==
LOC: WOU 13:30
PROVIDERS: ATTEND Surgery
DX: L89.324 Pressure ulcer of left buttock, stage 4 (principal); L89.891 Pressure ulcer of other site, stage 1; G30.8 Other Alzheimer's disease; M62.50 Muscle wasting and atrophy, not elsewhere classified, unspecified site; E46 Unspecified protein-calorie malnutrition; Z68.22 Body mass index [BMI] 22.0-22.9, adult; M24.50 Contracture, unspecified joint; Z79.01 Long term (current) use of anticoagulants
CPT/HCPCS: 11043; A6407

== ENCOUNTER 2020-10-04 14:00 | Outpatient (CLI) | payer MEDICARE, OTHER ==
[~2020-10-04 14:00] MED LIST changes: +LIDOCAINE SOLN 4% 50 ML BOTTLE ONE
[2020-10-04] MEDS ORDERED: CLOTRIMAZOLE 1% 15 GM TUBE TP ONE (14:16)
[2020-10-04] MEDS ORDERED: TRIAMCINOLONE ACETONIDE 0.1% CR 15 GM TUBE TP ONE (14:16)
== END 2020-10-04 23:59 | disposition home health service (06) ==
LOC: WOU 14:00
PROVIDERS: ATTEND Surgery
DX: L89.324 Pressure ulcer of left buttock, stage 4 (principal); L89.891 Pressure ulcer of other site, stage 1; M62.50 Muscle wasting and atrophy, not elsewhere classified, unspecified site; Z74.09 Other reduced mobility; E46 Unspecified protein-calorie malnutrition; Z68.22 Body mass index [BMI] 22.0-22.9, adult; M24.50 Contracture, unspecified joint; G30.8 Other Alzheimer's disease; Z79.01 Long term (current) use of anticoagulants
CPT/HCPCS: 11043

== ENCOUNTER 2020-10-18 14:10 | Outpatient (CLI) | payer MEDICARE, OTHER ==
[~2020-10-18 14:10] MED LIST changes: -LIDOCAINE SOLN 4% 50 ML BOTTLE ONE
== END 2020-10-18 23:59 | disposition home health service (06) ==
LOC: WOU 14:10
PROVIDERS: ATTEND Surgery
DX: L89.324 Pressure ulcer of left buttock, stage 4 (principal); L89.891 Pressure ulcer of other site, stage 1; M62.50 Muscle wasting and atrophy, not elsewhere classified, unspecified site; Z74.09 Other reduced mobility; E46 Unspecified protein-calorie malnutrition; Z68.22 Body mass index [BMI] 22.0-22.9, adult; M24.50 Contracture, unspecified joint; G30.8 Other Alzheimer's disease; Z79.01 Long term (current) use of anticoagulants
CPT/HCPCS: 11043; A6197

== ENCOUNTER 2020-10-25 13:53 | Outpatient (CLI) | payer MEDICARE, OTHER | END 2020-10-25 23:59 | disposition home health service (06) | LOC: WOU 13:53 | PROVIDERS: ATTEND Surgery | DX: L89.324 Pressure ulcer of left buttock, stage 4 (principal); L89.890 Pressure ulcer of other site, unstageable; M62.50 Muscle wasting and atrophy, not elsewhere classified, unspecified site; G30.8 Other Alzheimer's disease; E46 Unspecified protein-calorie malnutrition; Z68.22 Body mass index [BMI] 22.0-22.9, adult; M24.50 Contracture, unspecified joint; Z74.09 Other reduced mobility; Z79.01 Long term (current) use of anticoagulants | CPT/HCPCS: 11043; A6407 ==

== ENCOUNTER 2020-11-04 14:24 | Outpatient (CLI) | payer MEDICARE, OTHER ==
[2020-11-04] MEDS ORDERED: LIDOCAINE SOLN 4% 50 ML BOTTLE ONE (14:25)
[2020-11-04] MEDS ORDERED: TRIAMCINOLONE ACETONIDE 0.1% CR 15 GM TUBE TP ONE (14:57)
== END 2020-11-04 23:59 | disposition home health service (06) ==
LOC: WOU 14:24
PROVIDERS: ATTEND Surgery
DX: L89.324 Pressure ulcer of left buttock, stage 4 (principal); L89.221 Pressure ulcer of left hip, stage 1; L89.890 Pressure ulcer of other site, unstageable; M62.50 Muscle wasting and atrophy, not elsewhere classified, unspecified site; G30.8 Other Alzheimer's disease; E46 Unspecified protein-calorie malnutrition; Z68.22 Body mass index [BMI] 22.0-22.9, adult; M24.50 Contracture, unspecified joint; Z74.09 Other reduced mobility; Z79.01 Long term (current) use of anticoagulants
CPT/HCPCS: 11043; A6407

== ENCOUNTER 2020-11-18 13:08 | Outpatient (CLI) | payer MEDICARE, OTHER ==
[2020-11-18] MEDS ORDERED: LIDOCAINE SOLN 4% 50 ML BOTTLE ONE (13:32)
[2020-11-18] MEDS ORDERED: Z GUARD REMEDY 2 OZ OINT TP ONE (13:49)
[2020-11-18] MEDS ORDERED: TRIAMCINOLONE ACETONIDE 0.1% CR 15 GM TUBE TP ONE (13:59)
== END 2020-11-18 23:59 | disposition home health service (06) ==
LOC: WOU 13:08
PROVIDERS: ATTEND Surgery
DX: L89.324 Pressure ulcer of left buttock, stage 4 (principal); L89.891 Pressure ulcer of other site, stage 1; L89.326 Pressure-induced deep tissue damage of left buttock; Z74.09 Other reduced mobility; G30.8 Other Alzheimer's disease; M62.50 Muscle wasting and atrophy, not elsewhere classified, unspecified site; E46 Unspecified protein-calorie malnutrition; Z68.22 Body mass index [BMI] 22.0-22.9, adult
CPT/HCPCS: 11043; A6407